=== PATIENT | female | born 1990 | race Caucasian/White ===

== ENCOUNTER 2018-08-09 20:01 | Observation (INO) | payer BC, MEDICAID ==
[2018-08-09] MEDS ORDERED: Sodium Chloride 0.9% 1,000 ML IV ONE (20:06)
[2018-08-09 20:49] LABS: ACETAMINOPHEN <2.0 ug/mL; CHLORIDE,CL 101 mmol/L (98-107); SODIUM,NA 135 mmol/L (136-145)
--- NOTE | 2018-08-09 21:13 | CR ---
INDICATION: pain, sob TECHNIQUE: Chest 1 view. COMPARISON: None. FINDINGS: Cardiovascular and mediastinum: Heart size and vasculature are normal in caliber and appearance. Mediastinum is within normal limits. Lungs and pleural space: Lungs are clear. No sign of infiltrate or mass. No sign of pleural effusion. No pneumothorax. Bones and soft tissues: No significant findings. IMPRESSION: Unremarkable chest. Dictated by: Chin Carreon MD @ 08/09/2018 21:11:40 (Electronically Signed)
--- NOTE | 2018-08-09 21:15 | CT ---
INDICATION: Change in mental status TECHNIQUE: CT head without contrast. COMPARISON: None FINDINGS: CSF spaces: Within normal limits for age. Brain parenchyma: The courtney-white differentiation is normal. No sign of mass, hemorrhage, or midline shift. Skull base and calvarium: The visualized paranasal sinuses and mastoid air cells demonstrate no acute or significant findings. The visualized orbits are grossly unremarkable. No skull fractures. IMPRESSION: Unremarkable noncontrast head CT. Dictated by Chin Carreon MD @ 08/09/2018 9:13:38 PM Please note that all CT scans at this facility use dose modulation, iterative reconstruction, and/or weight-based dosing when appropriate to reduce radiation dose to as low as reasonably achievable. Dictated by: Chin Carreon MD @ 08/09/2018 21:13:42 (Electronically Signed)
--- NOTE | 2018-08-09 21:41 | EDM.PDOC ---
ED HPI GENERAL MEDICAL PROBLEM - General Chief Complaint: Neurological Problem Stated Complaint: FEVER, NOT FEELING WELL Time Seen by Provider: 08/09/18 20:02 Source of Information: Reports: Patient, EMS, Family History Limitations: Reports: No Limitations, Altered Mental Status - History of Present Illness INITIAL COMMENTS - FREE TEXT/NARRATIVE: HISTORY AND PHYSICAL: History of present illness: History of present illness is limited due to patient's altered mental status. Patient is a 27-year-old female presents to the ED today via EMS for concern of altered mental status. According to mother, they were in the kitchen making dinner when patient began to feed states she didn't feel well. Mother states she went and sat on the couch and then started trembling so mother called 911. Per EMS, patient had begun to become more alert after they have given 2 of Narcan. Upon arrival to the ED, patient is arousable to questions. Patient states she "doesn't feel well" but does not express any particular symptom. Patient states the only medication she has taken today is a total of 4 ibuprofen. Patient has a history of depression but denies any other health history. Patient denies fever, chills, chest pain, shortness of breath, or cough. Denies headache, neck stiff ness, change in vision, syncope, or near syncope. Denies nausea, vomiting, abdominal pain, diarrhea, constipation, or dysuria. Has not noted any blood in urine or stool. Patient has been eating and drinking appropriately. Review of systems: As per history of present illness and below otherwise all systems reviewed and negative. Past medical history: As per history of present illness and as reviewed below otherwise noncontributory. Surgical history: As per history of present illness and as reviewed below otherwise noncontributory. Social history: See social history for further information Family history: As per history of present illness and as reviewed below otherwise noncontributory. Physical exam: General: Patient is confused but alert to person and place. Patient laying comfortably on exam table. HEENT: Atraumatic, normocephalic, pupils equal and reactive bilaterally, negative for conjunctival pallor or scleral icterus, bilateral scleral injection , EOMs intact, mucous membranes moist, TMs normal bilaterally, throat clear, neck supple, nontender, trachea midline. No drooling or trismus noted. No meningeal signs. No hot potato voice noted. No noted facial drooping. Lungs: Clear to auscultation, breath sounds equal bilaterally, chest nontender. Heart: S1S2, regular rate and rhythm without overt murmur Abdomen: Soft, nondistended, nontender. Negative for masses or hepatosplenomegaly. Negative for costovertebral tenderness. Pelvis: Stable nontender. Genitourinary: Deferred. Rectal: Deferred. Skin: Intact, warm, dry. No lesions or rashes noted. Extremities: Atraumatic, negative for cords or calf pain. Neurovascular unremarkable. Neuro: Neuro exam is limited due to patient's confusion. Awake, but confused. Patient is alert to person and place but not time. Cranial nerves II through XII unremarkable. Cerebellum unremarkable. Motor and sensory unremarkable throughout. Notes: Dr. Vargas directly involved in patient care. Dr. Norman consulted on patient and will admit to observation. Voices understanding and is agreeable to plan of care. Denies any further questions or concerns at this time. Diagnostics: CBC, CMP, TSH, troponin, prolactin, chest x-ray, head CT, UA, urine hCG, urine drug screen, bedside glucose, EKG, Magnesium Therapeutics: Saline Impression: Confusion Altered mental status, unspecified Plan: 1. Admit to observation to Dr. Norman Definitive disposition and diagnosis as appropriate pending reevaluation and review of above. 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: Musculoskeletal History: Reports: None Neurological History: Reports: None Psychiatric History: Reports: Anxiety, Depression Endocrine/Metabolic History: Reports: None Hematologic History: Reports: None Immunologic History: Reports: None Oncologic (Cancer) History: Reports: None Dermatologic History: Reports: None - Infectious Disease History Infectious Disease History: Reports: None - Past Surgical History Head Surgeries/Procedures: Reports: None Female Surgical History: Reports: Section Social & Family History - Family History Family Medical History: Noncontributory - Tobacco Use Smoking Status *Q: Never Smoker - Caffeine Use Caffeine Use: Reports: None - Recreational Drug Use Recreational Drug Use: No ED ROS GENERAL - Review of Systems Review Of Systems: ROS reveals no pertinent complaints other than HPI. - Physical Exam Exam: See Below (see dictation) Course - Vital Signs Last Recorded V/S: Last Vital Signs Temp 37.7 C 08/09/18 20:05 Pulse 109 H 08/09/18 21:20 Resp 16 08/09/18 21:20 BP 155/94 H 08/09/18 21:20 Pulse Ox 97 08/09/18 21:20 - Orders/Labs/Meds Orders: Active Orders 24 hr Category Date Time Status EKG Documentation Completion [RC] STAT Care 08/09/18 20:05 Active Glucose [Blood Glucose Check, Bedside] [RC] ONETIME Care 08/09/18 20:04 Active CULTURE URINE [] Stat Lab 08/09/18 21:47 Received Labs: Laboratory Tests 08/09/18 08/09/18 08/09/18 Range/Units 20:07 20:07 20:07 WBC 14.82 H (4.0-11.0) K/uL RBC 4.61 (4.30-5.90) M/uL Hgb 13.3 (12.0-16.0) g/dL Hct 38.7 (36.0-46.0) % MCV 83.9 (80.0-98.0) fL MCH 28.9 (27.0-32.0) pg MCHC 34.4 (31.0-37.0) g/dL RDW Std Deviation 39.5 (28.0-62.0) fl RDW Coeff of Iram 13 (11.0-15.0) % Plt Count 294 (150-400) K/uL MPV 10.60 (7.40-12.00) fL Neut % (Auto) 84.2 H (48.0-80.0) % Lymph % (Auto) 9.6 L (16.0-40.0) % [place] % (Auto) 6.1 (0.0-15.0) % Eos % (Auto) 0.0 (0.0-7.0) % Baso % (Auto) 0.1 (0.0-1.5) % Neut # (Auto) 12.5 H (1.4-5.7) K/uL Lymph # (Auto) 1.4 (0.6-2.4) K/uL [place] # (Auto) 0.9 H (0.0-0.8) K/uL Eos # (Auto) 0.0 (0.0-0.7) K/uL Baso # (Auto) 0.0 (0.0-0.1) K/uL Nucleated RBC % 0.0 /100WBC Nucleated RBCs # 0 K/uL Sodium 135 L (136-145) mmol/L Potassium 3.3 L (3.5-5.1) mmol/L Chloride 101 (98-107) mmol/L Carbon Dioxide 23.5 (21.0-32.0) mmol/L BUN 9 (7.0-18.0) mg/dL Creatinine 0.7 (0.6-1.0) mg/dL Est Cr Clr Drug Dosing TNP Estimated GFR (MDRD) > 60.0 ml/min Glucose 112 H (74-106) mg/dL Calcium 8.5 (8.5-10.1) mg/dL Magnesium 1.7 L (1.8-2.4) mg/dL Total Bilirubin 0.3 (0.2-1.0) mg/dL AST 11 L (15-37) IU/L ALT 13 L (14-63) IU/L Alkaline Phosphatase 104 (46-116) U/L Troponin I (0.000-0.056) ng/mL Total Protein 7.5 (6.4-8.2) g/dL Albumin 3.7 (3.4-5.0) g/dL Globulin 3.8 (2.6-4.0) g/dL Albumin/Globulin Ratio 1.0 (0.9-1.6) TSH 3rd Generation 1.24 (0.36-3.74) uIU/mL Prolactin 22.1 ng/mL Urine Color Urine Appearance Urine pH (5.0-8.0) Ur Specific [place] (1.001-1.035) Urine Protein (NEGATIVE) mg/dL Urine Glucose (UA) (NEGATIVE) mg/dL Urine Ketones (NEGATIVE) mg/dL Urine Occult Blood (NEGATIVE) Urine Nitrite (NEGATIVE) Urine Bilirubin (NEGATIVE) Urine Urobilinogen (<2.0) EU/dL Ur Leukocyte Esterase (NEGATIVE) Urine RBC (0-2/HPF) Urine WBC (0-5/HPF) Ur Epithelial Cells (NONE-FEW) Urine Bacteria (NEGATIVE) Urine HCG, Qual (NEGATIVE) Salicylates 1.3 (0-20) mg/dL Urine Opiates Screen (NEGATIVE) Ur Oxycodone Screen (NEGATIVE) Urine Methadone Screen (NEGATIVE) Acetaminophen <2.0 ug/mL Ur Barbiturates Screen (NEGATIVE) Ur Phencyclidine Scrn (NEGATIVE) Ur Amphetamine Screen (NEGATIVE) U Methamphetamines Scrn (NEGATIVE) U Benzodiazepines Scrn (NEGATIVE) U Cocaine Metab Screen (NEGATIVE) U Marijuana (THC) Screen (NEGATIVE) Ethyl Alcohol < 3.0 mg/dL 08/09/18 08/09/18 08/09/18 Range/Units 20:07 21:47 21:47 WBC (4.0-11.0) K/uL RBC (4.30-5.90) M/uL Hgb (12.0-16.0) g/dL Hct (36.0-46.0) % MCV (80.0-98.0) fL MCH (27.0-32.0) pg MCHC (31.0-37.0) g/dL RDW Std Deviation (28.0-62.0) fl RDW Coeff of Iram (11.0-15.0) % Plt Count (150-400) K/uL MPV (7.40-12.00) fL Neut % (Auto) (48.0-80.0) % Lymph % (Auto) (16.0-40.0) % [place] % (Auto) (0.0-15.0) % Eos % (Auto) (0.0-7.0) % Baso % (Auto) (0.0-1.5) % Neut # (Auto) (1.4-5.7) K/uL Lymph # (Auto) (0.6-2.4) K/uL [place] # (Auto) (0.0-0.8) K/uL Eos # (Auto) (0.0-0.7) K/uL Baso # (Auto) (0.0-0.1) K/uL Nucleated RBC % /100WBC Nucleated RBCs # K/uL Sodium (136-145) mmol/L Potassium (3.5-5.1) mmol/L Chloride (98-107) mmol/L Carbon Dioxide (21.0-32.0) mmol/L BUN (7.0-18.0) mg/dL Creatinine (0.6-1.0) mg/dL Est Cr Clr Drug Dosing Estimated GFR (MDRD) ml/min Glucose (74-106) mg/dL Calcium (8.5-10.1) mg/dL Magnesium (1.8-2.4) mg/dL Total Bilirubin (0.2-1.0) mg/dL AST (15-37) IU/L ALT (14-63) IU/L Alkaline Phosphatase (46-116) U/L Troponin I < 0.050 (0.000-0.056) ng/mL Total Protein (6.4-8.2) g/dL Albumin (3.4-5.0) g/dL Globulin (2.6-4.0) g/dL Albumin/Globulin Ratio (0.9-1.6) TSH 3rd Generation (0.36-3.74) uIU/mL Prolactin ng/mL Urine Color YELLOW Urine Appearance CLEAR Urine pH 6.5 (5.0-8.0) Ur Specific [place] <= 1.005 (1.001-1.035) Urine Protein NEGATIVE (NEGATIVE) mg/dL Urine Glucose (UA) NEGATIVE (NEGATIVE) mg/dL Urine Ketones NEGATIVE (NEGATIVE) mg/dL Urine Occult Blood TRACE-INTACT H (NEGATIVE) Urine Nitrite NEGATIVE (NEGATIVE) Urine Bilirubin NEGATIVE (NEGATIVE) Urine Urobilinogen 0.2 (<2.0) EU/dL Ur Leukocyte Esterase TRACE H (NEGATIVE) Urine RBC 2-4 (0-2/HPF) Urine WBC 1-3 (0-5/HPF) Ur Epithelial Cells MODERATE (NONE-FEW) Urine Bacteria RARE (NEGATIVE) Urine HCG, Qual NEGATIVE (NEGATIVE) Salicylates (0-20) mg/dL Urine Opiates Screen (NEGATIVE) Ur Oxycodone Screen (NEGATIVE) Urine Methadone Screen (NEGATIVE) Acetaminophen ug/mL Ur Barbiturates Screen (NEGATIVE) Ur Phencyclidine Scrn (NEGATIVE) Ur Amphetamine Screen (NEGATIVE) U Methamphetamines Scrn (NEGATIVE) U Benzodiazepines Scrn (NEGATIVE) U Cocaine Metab Screen (NEGATIVE) U Marijuana (THC) Screen (NEGATIVE) Ethyl Alcohol mg/dL 08/09/18 Range/Units 21:47 WBC (4.0-11.0) K/uL RBC (4.30-5.90) M/uL Hgb (12.0-16.0) g/dL Hct (36.0-46.0) % MCV (80.0-98.0) fL MCH (27.0-32.0) pg MCHC (31.0-37.0) g/dL RDW Std Deviation (28.0-62.0) fl RDW Coeff of Iram (11.0-15.0) % Plt Count (150-400) K/uL MPV (7.40-12.00) fL Neut % (Auto) (48.0-80.0) % Lymph % (Auto) (16.0-40.0) % [place] % (Auto) (0.0-15.0) % Eos % (Auto) (0.0-7.0) % Baso % (Auto) (0.0-1.5) % Neut # (Auto) (1.4-5.7) K/uL Lymph # (Auto) (0.6-2.4) K/uL [place] # (Auto) (0.0-0.8) K/uL Eos # (Auto) (0.0-0.7) K/uL Baso # (Auto) (0.0-0.1) K/uL Nucleated RBC % /100WBC Nucleated RBCs # K/uL Sodium (136-145) mmol/L Potassium (3.5-5.1) mmol/L Chloride (98-107) mmol/L Carbon Dioxide (21.0-32.0) mmol/L BUN (7.0-18.0) mg/dL Creatinine (0.6-1.0) mg/dL Est Cr Clr Drug Dosing Estimated GFR (MDRD) ml/min Glucose (74-106) mg/dL Calcium (8.5-10.1) mg/dL Magnesium (1.8-2.4) mg/dL Total Bilirubin (0.2-1.0) mg/dL AST (15-37) IU/L ALT (14-63) IU/L Alkaline Phosphatase (46-116) U/L Troponin I (0.000-0.056) ng/mL Total Protein (6.4-8.2) g/dL Albumin (3.4-5.0) g/dL Globulin (2.6-4.0) g/dL Albumin/Globulin Ratio (0.9-1.6) TSH 3rd Generation (0.36-3.74) uIU/mL Prolactin ng/mL Urine Color Urine Appearance Urine pH (5.0-8.0) Ur Specific [place] (1.001-1.035) Urine Protein (NEGATIVE) mg/dL Urine Glucose (UA) (NEGATIVE) mg/dL Urine Ketones (NEGATIVE) mg/dL Urine Occult Blood (NEGATIVE) Urine Nitrite (NEGATIVE) Urine Bilirubin (NEGATIVE) Urine Urobilinogen (<2.0) EU/dL Ur Leukocyte Esterase (NEGATIVE) Urine RBC (0-2/HPF) Urine WBC (0-5/HPF) Ur Epithelial Cells (NONE-FEW) Urine Bacteria (NEGATIVE) Urine HCG, Qual (NEGATIVE) Salicylates (0-20) mg/dL Urine Opiates Screen NEGATIVE (NEGATIVE) Ur Oxycodone Screen NEGATIVE (NEGATIVE) Urine Methadone Screen NEGATIVE (NEGATIVE) Acetaminophen ug/mL Ur Barbiturates Screen NEGATIVE (NEGATIVE) Ur Phencyclidine Scrn NEGATIVE (NEGATIVE) Ur Amphetamine Screen NEGATIVE (NEGATIVE) U Methamphetamines Scrn NEGATIVE (NEGATIVE) U Benzodiazepines Scrn NEGATIVE (NEGATIVE) U Cocaine Metab Screen NEGATIVE (NEGATIVE) U Marijuana (THC) Screen NEGATIVE (NEGATIVE) Ethyl Alcohol mg/dL Meds: Medications Discontinued Medications Generic Name Dose Route Start Last Admin Trade Name Freq PRN Reason Stop Dose Admin Sodium Chloride 1,000 mls @ 999 mls/hr 08/09/18 20:06 08/09/18 20:19 Normal Saline IV 08/09/18 21:06 999 mls/hr STAT ONE Administration Departure - Departure Time of Disposition: 22:19 Disposition: Refer to Observation Clinical Impression: Confusion Altered mental status Qualifiers: Altered mental status type: unspecified Qualified Code(s): R41.82 - Altered mental status, unspecified - Discharge Information - My Orders Last 24 Hours: My Active Orders 08/09/18 20:04 Glucose [Blood Glucose Check, Bedside] [RC] ONETIME 08/09/18 20:05 EKG Documentation Completion [RC] STAT 08/09/18 21:47 CULTURE URINE [RM] Stat - Assessment/Plan Last 24 Hours: My Active Orders 08/09/18 20:04 Glucose [Blood Glucose Check, Bedside] [RC] ONETIME 08/09/18 20:05 EKG Documentation Completion [RC] STAT 08/09/18 21:47 CULTURE URINE [RM] Stat
--- NOTE | 2018-08-09 23:47 | PCM.HP ---
H&P History of Present Illness - General Date of Service: 08/10/18 Admit Problem/Dx: Admission Diagnosis/Problem Admission Diagnosis/Problem Altered mental status - History of Present Illness Initial Comments - Free Text/Narative: 27 yo female who has not been feeling well for past four days. She reports fevers, sweats, myalgias, and sore throat. Patient's 4 year old son had similar symptoms last week. Tonight she wasn't feeling well. Her mother told her to lay down and then she started to shake and passed out. EMS was called and gave narcan. Initially in the ED she kept her eyes closed and would not cooperated with exam before she started to respond to questions appropriately. headache Pain Score (Numeric/FACES): 10 - Related Data Allergies/Adverse Reactions: Allergies Allergy/AdvReac Type Severity Reaction Status Date / Time latex Allergy Hives Verified 08/09/18 20:05 Home Medications: Home Meds Escitalopram [Lexapro] 20 mg PO DAILY 08/09/18 [History] Nitrofurantoin Monohyd/M-Cryst [Macrobid 100 mg Capsule] 100 mg PO BID 5 Days # 10 capsule 08/11/18 [Rx] SUMAtriptan [Imitrex] 50 mg PO Q2H PRN #15 tablet 08/11/18 [Rx] Past Medical History - Past Health History Medical/Surgical History: Denies Medical/Surgical History HEENT History: Reports: None Cardiovascular History: Reports: None Respiratory History: Reports: None Gastrointestinal History: Reports: None Genitourinary History: Reports: None 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: Musculoskeletal History: Reports: None Neurological History: Reports: None Psychiatric History: Reports: Anxiety, Depression Endocrine/Metabolic History: Reports: None Hematologic History: Reports: None Immunologic History: Reports: None Oncologic (Cancer) History: Reports: None Dermatologic History: Reports: None - Infectious Disease History Infectious Disease History: Reports: None - Past Surgical History Head Surgeries/Procedures: Reports: None Female Surgical History: Reports: Section Social & Family History - Family History Family Medical History: Noncontributory - Tobacco Use Smoking Status *Q: Never Smoker - Caffeine Use Caffeine Use: Reports: None - Recreational Drug Use Recreational Drug Use: No H&P Review of Systems - Review of Systems: Review Of Systems: ROS reveals no pertinent complaints other than HPI. Exam - Exam Exam: See Below - Vital Signs Vital Signs: Last Vital Signs Temp 37.5 C 08/09/18 23:13 Pulse 101 H 08/09/18 23:13 Resp 17 08/09/18 23:13 BP 130/77 08/09/18 23:13 Pulse Ox 96 08/09/18 23:13 - Exam General: Alert, Oriented HEENT: Mucosa Moist & [place], Posterior Pharynx Clear Neck: Supple Lungs: Clear to Auscultation, Normal Respiratory Effort Cardiovascular: Regular Rate, Regular Rhythm GI/Abdominal Exam: Normal Bowel Sounds, Soft, Non-Tender, No Organomegaly Extremities: Normal Range of Motion, Non-Tender Skin: Warm, Dry, Intact Neurological: Cranial Nerves Intact. No: Focal Deficit - Patient Data Lab Results Last 24 hrs: Laboratory Results - last 24 hr 08/09/18 08/09/18 08/09/18 Range/Units 20:07 20:07 20:07 WBC 14.82 H (4.0-11.0) K/uL RBC 4.61 (4.30-5.90) M/uL Hgb 13.3 (12.0-16.0) g/dL Hct 38.7 (36.0-46.0) % MCV 83.9 (80.0-98.0) fL MCH 28.9 (27.0-32.0) pg MCHC 34.4 (31.0-37.0) g/dL RDW Std Deviation 39.5 (28.0-62.0) fl RDW Coeff of Iram 13 (11.0-15.0) % Plt Count 294 (150-400) K/uL MPV 10.60 (7.40-12.00) fL Neut % (Auto) 84.2 H (48.0-80.0) % Lymph % (Auto) 9.6 L (16.0-40.0) % [place] % (Auto) 6.1 (0.0-15.0) % Eos % (Auto) 0.0 (0.0-7.0) % Baso % (Auto) 0.1 (0.0-1.5) % Neut # (Auto) 12.5 H (1.4-5.7) K/uL Lymph # (Auto) 1.4 (0.6-2.4) K/uL [place] # (Auto) 0.9 H (0.0-0.8) K/uL Eos # (Auto) 0.0 (0.0-0.7) K/uL Baso # (Auto) 0.0 (0.0-0.1) K/uL Nucleated RBC % 0.0 /100WBC Nucleated RBCs # 0 K/uL Sodium 135 L (136-145) mmol/L Potassium 3.3 L (3.5-5.1) mmol/L Chloride 101 (98-107) mmol/L Carbon Dioxide 23.5 (21.0-32.0) mmol/L BUN 9 (7.0-18.0) mg/dL Creatinine 0.7 (0.6-1.0) mg/dL Est Cr Clr Drug Dosing TNP Estimated GFR (MDRD) > 60.0 ml/min Glucose 112 H (74-106) mg/dL Calcium 8.5 (8.5-10.1) mg/dL Magnesium 1.7 L (1.8-2.4) mg/dL Total Bilirubin 0.3 (0.2-1.0) mg/dL AST 11 L (15-37) IU/L ALT 13 L (14-63) IU/L Alkaline Phosphatase 104 (46-116) U/L Troponin I (0.000-0.056) ng/mL Total Protein 7.5 (6.4-8.2) g/dL Albumin 3.7 (3.4-5.0) g/dL Globulin 3.8 (2.6-4.0) g/dL Albumin/Globulin Ratio 1.0 (0.9-1.6) TSH 3rd Generation 1.24 (0.36-3.74) uIU/mL Prolactin 22.1 ng/mL Urine Color Urine Appearance Urine pH (5.0-8.0) Ur Specific [place] (1.001-1.035) Urine Protein (NEGATIVE) mg/dL Urine Glucose (UA) (NEGATIVE) mg/dL Urine Ketones (NEGATIVE) mg/dL Urine Occult Blood (NEGATIVE) Urine Nitrite (NEGATIVE) Urine Bilirubin (NEGATIVE) Urine Urobilinogen (<2.0) EU/dL Ur Leukocyte Esterase (NEGATIVE) Urine RBC (0-2/HPF) Urine WBC (0-5/HPF) Ur Epithelial Cells (NONE-FEW) Urine Bacteria (NEGATIVE) Urine HCG, Qual (NEGATIVE) Salicylates 1.3 (0-20) mg/dL Urine Opiates Screen (NEGATIVE) Ur Oxycodone Screen (NEGATIVE) Urine Methadone Screen (NEGATIVE) Acetaminophen <2.0 ug/mL Ur Barbiturates Screen (NEGATIVE) Ur Phencyclidine Scrn (NEGATIVE) Ur Amphetamine Screen (NEGATIVE) U Methamphetamines Scrn (NEGATIVE) U Benzodiazepines Scrn (NEGATIVE) U Cocaine Metab Screen (NEGATIVE) U Marijuana (THC) Screen (NEGATIVE) Ethyl Alcohol < 3.0 mg/dL 08/09/18 08/09/18 08/09/18 Range/Units 20:07 21:47 21:47 WBC (4.0-11.0) K/uL RBC (4.30-5.90) M/uL Hgb (12.0-16.0) g/dL Hct (36.0-46.0) % MCV (80.0-98.0) fL MCH (27.0-32.0) pg MCHC (31.0-37.0) g/dL RDW Std Deviation (28.0-62.0) fl RDW Coeff of Iram (11.0-15.0) % Plt Count (150-400) K/uL MPV (7.40-12.00) fL Neut % (Auto) (48.0-80.0) % Lymph % (Auto) (16.0-40.0) % [place] % (Auto) (0.0-15.0) % Eos % (Auto) (0.0-7.0) % Baso % (Auto) (0.0-1.5) % Neut # (Auto) (1.4-5.7) K/uL Lymph # (Auto) (0.6-2.4) K/uL [place] # (Auto) (0.0-0.8) K/uL Eos # (Auto) (0.0-0.7) K/uL Baso # (Auto) (0.0-0.1) K/uL Nucleated RBC % /100WBC Nucleated RBCs # K/uL Sodium (136-145) mmol/L Potassium (3.5-5.1) mmol/L Chloride (98-107) mmol/L Carbon Dioxide (21.0-32.0) mmol/L BUN (7.0-18.0) mg/dL Creatinine (0.6-1.0) mg/dL Est Cr Clr Drug Dosing Estimated GFR (MDRD) ml/min Glucose (74-106) mg/dL Calcium (8.5-10.1) mg/dL Magnesium (1.8-2.4) mg/dL Total Bilirubin (0.2-1.0) mg/dL AST (15-37) IU/L ALT (14-63) IU/L Alkaline Phosphatase (46-116) U/L Troponin I < 0.050 (0.000-0.056) ng/mL Total Protein (6.4-8.2) g/dL Albumin (3.4-5.0) g/dL Globulin (2.6-4.0) g/dL Albumin/Globulin Ratio (0.9-1.6) TSH 3rd Generation (0.36-3.74) uIU/mL Prolactin ng/mL Urine Color YELLOW Urine Appearance CLEAR Urine pH 6.5 (5.0-8.0) Ur Specific [place] <= 1.005 (1.001-1.035) Urine Protein NEGATIVE (NEGATIVE) mg/dL Urine Glucose (UA) NEGATIVE (NEGATIVE) mg/dL Urine Ketones NEGATIVE (NEGATIVE) mg/dL Urine Occult Blood TRACE-INTACT H (NEGATIVE) Urine Nitrite NEGATIVE (NEGATIVE) Urine Bilirubin NEGATIVE (NEGATIVE) Urine Urobilinogen 0.2 (<2.0) EU/dL Ur Leukocyte Esterase TRACE H (NEGATIVE) Urine RBC 2-4 (0-2/HPF) Urine WBC 1-3 (0-5/HPF) Ur Epithelial Cells MODERATE (NONE-FEW) Urine Bacteria RARE (NEGATIVE) Urine HCG, Qual NEGATIVE (NEGATIVE) Salicylates (0-20) mg/dL Urine Opiates Screen (NEGATIVE) Ur Oxycodone Screen (NEGATIVE) Urine Methadone Screen (NEGATIVE) Acetaminophen ug/mL Ur Barbiturates Screen (NEGATIVE) Ur Phencyclidine Scrn (NEGATIVE) Ur Amphetamine Screen (NEGATIVE) U Methamphetamines Scrn (NEGATIVE) U Benzodiazepines Scrn (NEGATIVE) U Cocaine Metab Screen (NEGATIVE) U Marijuana (THC) Screen (NEGATIVE) Ethyl Alcohol mg/dL 08/09/18 Range/Units 21:47 WBC (4.0-11.0) K/uL RBC (4.30-5.90) M/uL Hgb (12.0-16.0) g/dL Hct (36.0-46.0) % MCV (80.0-98.0) fL MCH (27.0-32.0) pg MCHC (31.0-37.0) g/dL RDW Std Deviation (28.0-62.0) fl RDW Coeff of Iram (11.0-15.0) % Plt Count (150-400) K/uL MPV (7.40-12.00) fL Neut % (Auto) (48.0-80.0) % Lymph % (Auto) (16.0-40.0) % [place] % (Auto) (0.0-15.0) % Eos % (Auto) (0.0-7.0) % Baso % (Auto) (0.0-1.5) % Neut # (Auto) (1.4-5.7) K/uL Lymph # (Auto) (0.6-2.4) K/uL [place] # (Auto) (0.0-0.8) K/uL Eos # (Auto) (0.0-0.7) K/uL Baso # (Auto) (0.0-0.1) K/uL Nucleated RBC % /100WBC Nucleated RBCs # K/uL Sodium (136-145) mmol/L Potassium (3.5-5.1) mmol/L Chloride (98-107) mmol/L Carbon Dioxide (21.0-32.0) mmol/L BUN (7.0-18.0) mg/dL Creatinine (0.6-1.0) mg/dL Est Cr Clr Drug Dosing Estimated GFR (MDRD) ml/min Glucose (74-106) mg/dL Calcium (8.5-10.1) mg/dL Magnesium (1.8-2.4) mg/dL Total Bilirubin (0.2-1.0) mg/dL AST (15-37) IU/L ALT (14-63) IU/L Alkaline Phosphatase (46-116) U/L Troponin I (0.000-0.056) ng/mL Total Protein (6.4-8.2) g/dL Albumin (3.4-5.0) g/dL Globulin (2.6-4.0) g/dL Albumin/Globulin Ratio (0.9-1.6) TSH 3rd Generation (0.36-3.74) uIU/mL Prolactin ng/mL Urine Color Urine Appearance Urine pH (5.0-8.0) Ur Specific [place] (1.001-1.035) Urine Protein (NEGATIVE) mg/dL Urine Glucose (UA) (NEGATIVE) mg/dL Urine Ketones (NEGATIVE) mg/dL Urine Occult Blood (NEGATIVE) Urine Nitrite (NEGATIVE) Urine Bilirubin (NEGATIVE) Urine Urobilinogen (<2.0) EU/dL Ur Leukocyte Esterase (NEGATIVE) Urine RBC (0-2/HPF) Urine WBC (0-5/HPF) Ur Epithelial Cells (NONE-FEW) Urine Bacteria (NEGATIVE) Urine HCG, Qual (NEGATIVE) Salicylates (0-20) mg/dL Urine Opiates Screen NEGATIVE (NEGATIVE) Ur Oxycodone Screen NEGATIVE (NEGATIVE) Urine Methadone Screen NEGATIVE (NEGATIVE) Acetaminophen ug/mL Ur Barbiturates Screen NEGATIVE (NEGATIVE) Ur Phencyclidine Scrn NEGATIVE (NEGATIVE) Ur Amphetamine Screen NEGATIVE (NEGATIVE) U Methamphetamines Scrn NEGATIVE (NEGATIVE) U Benzodiazepines Scrn NEGATIVE (NEGATIVE) U Cocaine Metab Screen NEGATIVE (NEGATIVE) U Marijuana (THC) Screen NEGATIVE (NEGATIVE) Ethyl Alcohol mg/dL Result Diagrams: 08/11/18 05:35 08/11/18 05:35 Problem List Initiated/Reviewed/Updated: Yes Orders Last 24hrs: Active Orders 24 hr Category Date Time Status Admission Status [Patient Status] [ADT] Stat ADT 08/09/18 22:20 Active EKG Documentation Completion [RC] STAT Care 08/09/18 20:05 Active Glucose [Blood Glucose Check, Bedside] [RC] ONETIME Care 08/09/18 20:04 Active CULTURE URINE [RM] Stat Lab 08/09/18 21:47 Received Assessment/Plan Comment:: 27 yo female admitted after episode of loss of consciousness that is likely due to acute viral illness.
[2018-08-10] MEDS ORDERED: Ondansetron 4 MG Tab.DIS PO PRN
[2018-08-10] MEDS: Sodium Chloride 0.9% 1,000 ML IV SCH ×3 (00:45→16:39)
[2018-08-10 06:29] LABS: CHLORIDE,CL 104 mmol/L (98-107); SODIUM,NA 136 mmol/L (136-145)
[2018-08-10] MEDS: Acetaminophen 325 MG Tab PO PRN ×2 (07:39→12:25)
[2018-08-10] MEDS ORDERED: Magnesium Sulfate/Water 2 GM in Premix Bag 1 BAG IV ONE (07:45)
[2018-08-10] MEDS ORDERED: Acetaminophen 500 MG Tab PO PRN (08:49)
[2018-08-10] MEDS ORDERED: SUMAtriptan 50 MG Tab PO ONE (09:41)
--- NOTE | 2018-08-10 15:24 | PCM.PN ---
- General Info Date of Service: 08/10/18 Subjective Update: No acute events overnight. Afebrile. No nausea or vomiting. She is endorsing diffuse headache. No chest pain, dyspnea, abdominal pain. - Patient Data Vitals - Most Recent: Last Vital Signs Temp 36.3 C 08/10/18 11:00 Pulse 74 08/10/18 11:00 Resp 18 08/10/18 11:00 BP 98/57 L 08/10/18 11:00 Pulse Ox 97 08/10/18 11:00 Weight - Most Recent: 83.915 kg I&O - Last 24 Hours: Intake & Output 08/10/18 08/10/18 08/10/18 06:59 14:59 22:59 Intake Total 491 50 Output Total 0 Balance 491 50 Lab Results Last 24 Hours: Laboratory Results - last 24 hr 08/09/18 08/09/18 08/09/18 Range/Units 20:07 20:07 20:07 WBC 14.82 H (4.0-11.0) K/uL RBC 4.61 (4.30-5.90) M/uL Hgb 13.3 (12.0-16.0) g/dL Hct 38.7 (36.0-46.0) % MCV 83.9 (80.0-98.0) fL MCH 28.9 (27.0-32.0) pg MCHC 34.4 (31.0-37.0) g/dL RDW Std Deviation 39.5 (28.0-62.0) fl RDW Coeff of Iram 13 (11.0-15.0) % Plt Count 294 (150-400) K/uL MPV 10.60 (7.40-12.00) fL Neut % (Auto) 84.2 H (48.0-80.0) % Lymph % (Auto) 9.6 L (16.0-40.0) % [place] % (Auto) 6.1 (0.0-15.0) % Eos % (Auto) 0.0 (0.0-7.0) % Baso % (Auto) 0.1 (0.0-1.5) % Neut # (Auto) 12.5 H (1.4-5.7) K/uL Lymph # (Auto) 1.4 (0.6-2.4) K/uL [place] # (Auto) 0.9 H (0.0-0.8) K/uL Eos # (Auto) 0.0 (0.0-0.7) K/uL Baso # (Auto) 0.0 (0.0-0.1) K/uL Nucleated RBC % 0.0 /100WBC Nucleated RBCs # 0 K/uL Sodium 135 L (136-145) mmol/L Potassium 3.3 L (3.5-5.1) mmol/L Chloride 101 (98-107) mmol/L Carbon Dioxide 23.5 (21.0-32.0) mmol/L BUN 9 (7.0-18.0) mg/dL Creatinine 0.7 (0.6-1.0) mg/dL Est Cr Clr Drug Dosing TNP Estimated GFR (MDRD) > 60.0 ml/min Glucose 112 H (74-106) mg/dL Calcium 8.5 (8.5-10.1) mg/dL Magnesium 1.7 L (1.8-2.4) mg/dL Total Bilirubin 0.3 (0.2-1.0) mg/dL AST 11 L (15-37) IU/L ALT 13 L (14-63) IU/L Alkaline Phosphatase 104 (46-116) U/L Troponin I (0.000-0.056) ng/mL Total Protein 7.5 (6.4-8.2) g/dL Albumin 3.7 (3.4-5.0) g/dL Globulin 3.8 (2.6-4.0) g/dL Albumin/Globulin Ratio 1.0 (0.9-1.6) TSH 3rd Generation 1.24 (0.36-3.74) uIU/mL Prolactin 22.1 ng/mL Urine Color Urine Appearance Urine pH (5.0-8.0) Ur Specific [place] (1.001-1.035) Urine Protein (NEGATIVE) mg/dL Urine Glucose (UA) (NEGATIVE) mg/dL Urine Ketones (NEGATIVE) mg/dL Urine Occult Blood (NEGATIVE) Urine Nitrite (NEGATIVE) Urine Bilirubin (NEGATIVE) Urine Urobilinogen (<2.0) EU/dL Ur Leukocyte Esterase (NEGATIVE) Urine RBC (0-2/HPF) Urine WBC (0-5/HPF) Ur Epithelial Cells (NONE-FEW) Urine Bacteria (NEGATIVE) Urine HCG, Qual (NEGATIVE) Salicylates 1.3 (0-20) mg/dL Urine Opiates Screen (NEGATIVE) Ur Oxycodone Screen (NEGATIVE) Urine Methadone Screen (NEGATIVE) Acetaminophen <2.0 ug/mL Ur Barbiturates Screen (NEGATIVE) Ur Phencyclidine Scrn (NEGATIVE) Ur Amphetamine Screen (NEGATIVE) U Methamphetamines Scrn (NEGATIVE) U Benzodiazepines Scrn (NEGATIVE) U Cocaine Metab Screen (NEGATIVE) U Marijuana (THC) Screen (NEGATIVE) Ethyl Alcohol < 3.0 mg/dL Monoscreen (NEG) HIV 1&2 Ag/Ab, 4th Gen (<1.0) INDEX 08/09/18 08/09/18 08/09/18 Range/Units 20:07 20:07 20:07 WBC (4.0-11.0) K/uL RBC (4.30-5.90) M/uL Hgb (12.0-16.0) g/dL Hct (36.0-46.0) % MCV (80.0-98.0) fL MCH (27.0-32.0) pg MCHC (31.0-37.0) g/dL RDW Std Deviation (28.0-62.0) fl RDW Coeff of Iram (11.0-15.0) % Plt Count (150-400) K/uL MPV (7.40-12.00) fL Neut % (Auto) (48.0-80.0) % Lymph % (Auto) (16.0-40.0) % [place] % (Auto) (0.0-15.0) % Eos % (Auto) (0.0-7.0) % Baso % (Auto) (0.0-1.5) % Neut # (Auto) (1.4-5.7) K/uL Lymph # (Auto) (0.6-2.4) K/uL [place] # (Auto) (0.0-0.8) K/uL Eos # (Auto) (0.0-0.7) K/uL Baso # (Auto) (0.0-0.1) K/uL Nucleated RBC % /100WBC Nucleated RBCs # K/uL Sodium (136-145) mmol/L Potassium (3.5-5.1) mmol/L Chloride (98-107) mmol/L Carbon Dioxide (21.0-32.0) mmol/L BUN (7.0-18.0) mg/dL Creatinine (0.6-1.0) mg/dL Est Cr Clr Drug Dosing Estimated GFR (MDRD) ml/min Glucose (74-106) mg/dL Calcium (8.5-10.1) mg/dL Magnesium (1.8-2.4) mg/dL Total Bilirubin (0.2-1.0) mg/dL AST (15-37) IU/L ALT (14-63) IU/L Alkaline Phosphatase (46-116) U/L Troponin I < 0.050 (0.000-0.056) ng/mL Total Protein (6.4-8.2) g/dL Albumin (3.4-5.0) g/dL Globulin (2.6-4.0) g/dL Albumin/Globulin Ratio (0.9-1.6) TSH 3rd Generation (0.36-3.74) uIU/mL Prolactin ng/mL Urine Color Urine Appearance Urine pH (5.0-8.0) Ur Specific [place] (1.001-1.035) Urine Protein (NEGATIVE) mg/dL Urine Glucose (UA) (NEGATIVE) mg/dL Urine Ketones (NEGATIVE) mg/dL Urine Occult Blood (NEGATIVE) Urine Nitrite (NEGATIVE) Urine Bilirubin (NEGATIVE) Urine Urobilinogen (<2.0) EU/dL Ur Leukocyte Esterase (NEGATIVE) Urine RBC (0-2/HPF) Urine WBC (0-5/HPF) Ur Epithelial Cells (NONE-FEW) Urine Bacteria (NEGATIVE) Urine HCG, Qual (NEGATIVE) Salicylates (0-20) mg/dL Urine Opiates Screen (NEGATIVE) Ur Oxycodone Screen (NEGATIVE) Urine Methadone Screen (NEGATIVE) Acetaminophen ug/mL Ur Barbiturates Screen (NEGATIVE) Ur Phencyclidine Scrn (NEGATIVE) Ur Amphetamine Screen (NEGATIVE) U Methamphetamines Scrn (NEGATIVE) U Benzodiazepines Scrn (NEGATIVE) U Cocaine Metab Screen (NEGATIVE) U Marijuana (THC) Screen (NEGATIVE) Ethyl Alcohol mg/dL Monoscreen NEGATIVE (NEG) HIV 1&2 Ag/Ab, 4th Gen < 0.1 (<1.0) INDEX 06/06/19 06/06/19 06/06/19 Range/Units 21:47 21:47 21:47 WBC (4.0-11.0) K/uL RBC (4.30-5.90) M/uL Hgb (12.0-16.0) g/dL Hct (36.0-46.0) % MCV (80.0-98.0) fL MCH (27.0-32.0) pg MCHC (31.0-37.0) g/dL RDW Std Deviation (28.0-62.0) fl RDW Coeff of Iram (11.0-15.0) % Plt Count (150-400) K/uL MPV (7.40-12.00) fL Neut % (Auto) (48.0-80.0) % Lymph % (Auto) (16.0-40.0) % [place] % (Auto) (0.0-15.0) % Eos % (Auto) (0.0-7.0) % Baso % (Auto) (0.0-1.5) % Neut # (Auto) (1.4-5.7) K/uL Lymph # (Auto) (0.6-2.4) K/uL [place] # (Auto) (0.0-0.8) K/uL Eos # (Auto) (0.0-0.7) K/uL Baso # (Auto) (0.0-0.1) K/uL Nucleated RBC % /100WBC Nucleated RBCs # K/uL Sodium (136-145) mmol/L Potassium (3.5-5.1) mmol/L Chloride (98-107) mmol/L Carbon Dioxide (21.0-32.0) mmol/L BUN (7.0-18.0) mg/dL Creatinine (0.6-1.0) mg/dL Est Cr Clr Drug Dosing Estimated GFR (MDRD) ml/min Glucose (74-106) mg/dL Calcium (8.5-10.1) mg/dL Magnesium (1.8-2.4) mg/dL Total Bilirubin (0.2-1.0) mg/dL AST (15-37) IU/L ALT (14-63) IU/L Alkaline Phosphatase (46-116) U/L Troponin I (0.000-0.056) ng/mL Total Protein (6.4-8.2) g/dL Albumin (3.4-5.0) g/dL Globulin (2.6-4.0) g/dL Albumin/Globulin Ratio (0.9-1.6) TSH 3rd Generation (0.36-3.74) uIU/mL Prolactin ng/mL Urine Color YELLOW Urine Appearance CLEAR Urine pH 6.5 (5.0-8.0) Ur Specific [place] <= 1.005 (1.001-1.035) Urine Protein NEGATIVE (NEGATIVE) mg/dL Urine Glucose (UA) NEGATIVE (NEGATIVE) mg/dL Urine Ketones NEGATIVE (NEGATIVE) mg/dL Urine Occult Blood TRACE-INTACT H (NEGATIVE) Urine Nitrite NEGATIVE (NEGATIVE) Urine Bilirubin NEGATIVE (NEGATIVE) Urine Urobilinogen 0.2 (<2.0) EU/dL Ur Leukocyte Esterase TRACE H (NEGATIVE) Urine RBC 2-4 (0-2/HPF) Urine WBC 1-3 (0-5/HPF) Ur Epithelial Cells MODERATE (NONE-FEW) Urine Bacteria RARE (NEGATIVE) Urine HCG, Qual NEGATIVE (NEGATIVE) Salicylates (0-20) mg/dL Urine Opiates Screen NEGATIVE (NEGATIVE) Ur Oxycodone Screen NEGATIVE (NEGATIVE) Urine Methadone Screen NEGATIVE (NEGATIVE) Acetaminophen ug/mL Ur Barbiturates Screen NEGATIVE (NEGATIVE) Ur Phencyclidine Scrn NEGATIVE (NEGATIVE) Ur Amphetamine Screen NEGATIVE (NEGATIVE) U Methamphetamines Scrn NEGATIVE (NEGATIVE) U Benzodiazepines Scrn NEGATIVE (NEGATIVE) U Cocaine Metab Screen NEGATIVE (NEGATIVE) U Marijuana (THC) Screen NEGATIVE (NEGATIVE) Ethyl Alcohol mg/dL Monoscreen (NEG) HIV 1&2 Ag/Ab, 4th Gen (<1.0) INDEX 08/10/18 08/10/18 Range/Units 04:55 04:55 WBC 14.33 H (4.0-11.0) K/uL RBC 4.51 (4.30-5.90) M/uL Hgb 12.8 (12.0-16.0) g/dL Hct 38.4 (36.0-46.0) % MCV 85.1 (80.0-98.0) fL MCH 28.4 (27.0-32.0) pg MCHC 33.3 (31.0-37.0) g/dL RDW Std Deviation 41.1 (28.0-62.0) fl RDW Coeff of Iram 13 (11.0-15.0) % Plt Count 283 (150-400) K/uL MPV 10.90 (7.40-12.00) fL Neut % (Auto) 83.3 H (48.0-80.0) % Lymph % (Auto) 10.6 L (16.0-40.0) % [place] % (Auto) 6.0 (0.0-15.0) % Eos % (Auto) 0.0 (0.0-7.0) % Baso % (Auto) 0.1 (0.0-1.5) % Neut # (Auto) 11.9 H (1.4-5.7) K/uL Lymph # (Auto) 1.5 (0.6-2.4) K/uL [place] # (Auto) 0.9 H (0.0-0.8) K/uL Eos # (Auto) 0.0 (0.0-0.7) K/uL Baso # (Auto) 0.0 (0.0-0.1) K/uL Nucleated RBC % 0.0 /100WBC Nucleated RBCs # 0 K/uL Sodium 136 (136-145) mmol/L Potassium 3.6 (3.5-5.1) mmol/L Chloride 104 (98-107) mmol/L Carbon Dioxide 22.9 (21.0-32.0) mmol/L BUN 6 L (7.0-18.0) mg/dL Creatinine 0.6 (0.6-1.0) mg/dL Est Cr Clr Drug Dosing TNP Estimated GFR (MDRD) > 60.0 ml/min Glucose 109 H (74-106) mg/dL Calcium 8.1 L (8.5-10.1) mg/dL Magnesium (1.8-2.4) mg/dL Total Bilirubin (0.2-1.0) mg/dL AST (15-37) IU/L ALT (14-63) IU/L Alkaline Phosphatase (46-116) U/L Troponin I (0.000-0.056) ng/mL Total Protein (6.4-8.2) g/dL Albumin (3.4-5.0) g/dL Globulin (2.6-4.0) g/dL Albumin/Globulin Ratio (0.9-1.6) TSH 3rd Generation (0.36-3.74) uIU/mL Prolactin ng/mL Urine Color Urine Appearance Urine pH (5.0-8.0) Ur Specific [place] (1.001-1.035) Urine Protein (NEGATIVE) mg/dL Urine Glucose (UA) (NEGATIVE) mg/dL Urine Ketones (NEGATIVE) mg/dL Urine Occult Blood (NEGATIVE) Urine Nitrite (NEGATIVE) Urine Bilirubin (NEGATIVE) Urine Urobilinogen (<2.0) EU/dL Ur Leukocyte Esterase (NEGATIVE) Urine RBC (0-2/HPF) Urine WBC (0-5/HPF) Ur Epithelial Cells (NONE-FEW) Urine Bacteria (NEGATIVE) Urine HCG, Qual (NEGATIVE) Salicylates (0-20) mg/dL Urine Opiates Screen (NEGATIVE) Ur Oxycodone Screen (NEGATIVE) Urine Methadone Screen (NEGATIVE) Acetaminophen ug/mL Ur Barbiturates Screen (NEGATIVE) Ur Phencyclidine Scrn (NEGATIVE) Ur Amphetamine Screen (NEGATIVE) U Methamphetamines Scrn (NEGATIVE) U Benzodiazepines Scrn (NEGATIVE) U Cocaine Metab Screen (NEGATIVE) U Marijuana (THC) Screen (NEGATIVE) Ethyl Alcohol mg/dL Monoscreen (NEG) HIV 1&2 Ag/Ab, 4th Gen (<1.0) INDEX Rodri Results Last 24 Hours: Microbiology 08/10/18 00:35 Group A Streptococcus Rapid Screen - Final Throat NEGATIVE STREP A SCREEN REFERENCE RANGE: NEGATIVE Med Orders - Current: Current Medications Acetaminophen (Tylenol) 650 mg PO Q4H PRN PRN Reason: Pain (Mild 1-3)/fever Last Admin: 08/10/18 12:25 Dose: 650 mg Sodium Chloride (Normal Saline) 1,000 mls @ 125 mls/hr IV ASDIRECTED ESTEFANY Last Admin: 08/10/18 08:08 Dose: 125 mls/hr Sodium Chloride (Normal Saline) 1,000 mls @ 125 mls/hr IV ASDIRECTED ESTEFANY Last Admin: 08/10/18 00:45 Dose: 125 mls/hr Ceftriaxone Sodium/Dextrose 1 (gm/ Premix) 50 mls @ 100 mls/hr IV Q24H [facility] Ondansetron HCl (Zofran Odt) 4 mg PO Q4H PRN PRN Reason: nausea, able to take PO Discontinued Medications Acetaminophen (Tylenol Extra Strength) 500 mg PO Q6H PRN PRN Reason: Pain Sodium Chloride (Normal Saline) 1,000 mls @ 999 mls/hr IV STAT ONE Stop: 08/09/18 21:06 Last Admin: 08/09/18 20:19 Dose: 999 mls/hr Magnesium Sulfate 2 gm/ Premix 50 mls @ 25 mls/hr IV ONETIME ONE Stop: 08/10/18 09:44 Last Admin: 08/10/18 08:08 Dose: 25 mls/hr Sumatriptan Succinate (Imitrex) 50 mg PO ONETIME ONE Stop: 08/10/18 09:42 Last Admin: 08/10/18 10:07 Dose: 50 mg - Exam General: Alert, Oriented, Cooperative, No Acute Distress HEENT: Pupils Equal, Pupils Reactive, Other (drym mucous membranes). No: Scleral Icterus Lungs: Clear to Auscultation, Normal Respiratory Effort. No: Crackles, Wheezing Cardiovascular: Regular Rate, Regular Rhythm GI/Abdominal Exam: Normal Bowel Sounds, Soft, Non-Tender Extremities: Normal Inspection, No Pedal Edema Skin: Warm, Dry Neurological: No New Focal Deficit, Cranial Nerves Intact - Problem List Review Problem List Initiated/Reviewed/Updated: Yes - My Orders Last 24 Hours: My Active Orders 08/10/18 15:15 cefTRIAXone [Rocephin in Dextrose,Iso-Osm 1 GM/50 ML] 1 gm Premix Bag 1 bag IV Q24H - Plan Plan:: A: 1. Acute metabolic encephalopathy, likely 2/2 to viral infection 2. UTI 3. Migraine 4. Hypomagnesemia P: 1. Acute metabolic encephalopathy. Will continue with IV NS fluids and monitor. Seems to be at baseline. I suspect that it was possibly her migraine since she states the headache is similar to her migraine, rather than seizure activity. However, will need outpatient EEG and Zio patch for further evaluation. 2. UTI. Started ceftriaxone. 3. Migraine. Tylenol and Sumatriptan. 4. Hypomagnesemia, replaced. dispo: dc tomorrow.
[2018-08-10] MEDS ORDERED: SUMAtriptan 50 MG Tab PO PRN (15:34)
[2018-08-10] MEDS ORDERED: cefTRIAXone 1 GM in Premix Bag 1 BAG IV SCH (15:45)
[2018-08-11] MEDS: Sodium Chloride 0.9% 1,000 ML IV SCH ×2 (00:15→08:29)
[2018-08-11 06:35] LABS: CHLORIDE,CL 106 mmol/L (98-107); SODIUM,NA 138 mmol/L (136-145)
--- NOTE | 2018-08-11 10:24 | PCM.DCSUM1 ---
<Jeremy Lopez - Last Filed: 08/11/18 10:32> Discharge Summary - Hospital Course Free Text/Narrative:: 27 y/o female presented to the ER after suspected seizure at home. She was admitted for observation. In addition, she was found to have a UTI. She was started on ceftriaxone. During the hospitalization the patient did not have any seizures. She was given sumatriptan for migraines and that resolved her symptoms. She was tolerating PO intake and able to ambulate. She was discharged home on Macrobid 100 mg PO BID for 5 days and advised to follow-up with her PCP. - Discharge Data Discharge Date: 08/11/18 Discharge Disposition: Home, Self-Care 01 Condition: Good - Patient Instructions Diet: Regular Diet as Tolerated Activity: As Tolerated Notify Provider of: Fever, Increased Pain, Swelling and Redness, Nausea and/or Vomiting - Discharge Plan *PRESCRIPTION DRUG MONITORING PROGRAM REVIEWED*: Not Applicable *COPY OF PRESCRIPTION DRUG MONITORING REPORT IN PATIENT MARCI: Not Applicable Prescriptions/Med Rec: Nitrofurantoin Monohyd/M-Cryst [Macrobid 100 mg Capsule] 100 mg PO BID 5 Days # 10 capsule SUMAtriptan [Imitrex] 50 mg PO Q2H PRN #15 tablet PRN Reason: Headache Home Medications: Home Meds Escitalopram [Lexapro] 20 mg PO DAILY 08/09/18 [History] Nitrofurantoin Monohyd/M-Cryst [Macrobid 100 mg Capsule] 100 mg PO BID 5 Days # 10 capsule 08/11/18 [Rx] SUMAtriptan [Imitrex] 50 mg PO Q2H PRN #15 tablet 08/11/18 [Rx] Patient Handouts: Migraine Headache, [id number], Nitrofurantoin tablets or capsules, Sumatriptan tablets Referrals: [facility] [Outside] Adebayo Siu MD [Physician] - 08/20/18 12:30 pm Devaughn Haywood MD [Physician] - - Discharge Summary/Plan Comment DC Time >30 min.: No - Patient Data Vitals - Most Recent: Last Vital Signs Temp 36.6 C 08/11/18 08:00 Pulse 71 08/11/18 08:00 Resp 17 08/11/18 08:00 BP 119/74 08/11/18 08:00 Pulse Ox 95 08/11/18 08:00 Weight - Most Recent: 83.915 kg I&O - Last 24 hours: Intake & Output 08/10/18 08/11/18 08/11/18 22:59 06:59 14:59 Intake Total 2488 2623 Output Total 3200 0380 Balance -712 -519 Lab Results - Last 24 hrs: Laboratory Results - last 24 hr 08/11/18 08/11/18 Range/Units 05:35 05:35 WBC 10.89 (4.0-11.0) K/uL RBC 4.46 (4.30-5.90) M/uL Hgb 12.4 (12.0-16.0) g/dL Hct 38.2 (36.0-46.0) % MCV 85.7 (80.0-98.0) fL MCH 27.8 (27.0-32.0) pg MCHC 32.5 (31.0-37.0) g/dL RDW Std Deviation 41.9 (28.0-62.0) fl RDW Coeff of Iram 13 (11.0-15.0) % Plt Count 272 (150-400) K/uL MPV 10.60 (7.40-12.00) fL Nucleated RBC % 0.0 /100WBC Nucleated RBCs # 0 K/uL Sodium 138 (136-145) mmol/L Potassium 3.9 (3.5-5.1) mmol/L Chloride 106 (98-107) mmol/L Carbon Dioxide 22.5 (21.0-32.0) mmol/L BUN 5 L (7.0-18.0) mg/dL Creatinine 0.6 (0.6-1.0) mg/dL Est Cr Clr Drug Dosing TNP Estimated GFR (MDRD) > 60.0 ml/min Glucose 95 (74-106) mg/dL Calcium 8.1 L (8.5-10.1) mg/dL Magnesium 2.0 (1.8-2.4) mg/dL CLAUDIA Results - Last 24 hrs: Microbiology 08/10/18 00:35 Quick Strep Confirmation Culture - Final Throat NO GROUP A STREP ISOLATED REFERENCE RANGE: NEGATIVE Group A Streptococcus Rapid Screen - Final NEGATIVE STREP A SCREEN REFERENCE RANGE: NEGATIVE Med Orders - Current: Current Medications Acetaminophen (Tylenol) 650 mg PO Q4H PRN PRN Reason: Pain (Mild 1-3)/fever Last Admin: 08/10/18 12:25 Dose: 650 mg Sodium Chloride (Normal Saline) 1,000 mls @ 125 mls/hr IV ASDIRECTED [facility] Last Admin: 08/10/18 16:39 Dose: 125 mls/hr Sodium Chloride (Normal Saline) 1,000 mls @ 125 mls/hr IV ASDIRECTED [facility] Last Admin: 08/11/18 08:29 Dose: 125 mls/hr Ceftriaxone Sodium/Dextrose 1 (gm/ Premix) 50 mls @ 100 mls/hr IV Q24H [facility] Last Admin: 08/10/18 16:39 Dose: 100 mls/hr Ondansetron HCl (Zofran Odt) 4 mg PO Q4H PRN PRN Reason: nausea, able to take PO Sumatriptan Succinate (Imitrex) 50 mg PO Q2H PRN PRN Reason: Headache Last Admin: 08/11/18 09:05 Dose: 50 mg Discontinued Medications Acetaminophen (Tylenol Extra Strength) 500 mg PO Q6H PRN PRN Reason: Pain Sodium Chloride (Normal Saline) 1,000 mls @ 999 mls/hr IV STAT ONE Stop: 08/09/18 21:06 Last Admin: 08/09/18 20:19 Dose: 999 mls/hr Magnesium Sulfate 2 gm/ Premix 50 mls @ 25 mls/hr IV ONETIME ONE Stop: 08/10/18 09:44 Last Admin: 08/10/18 08:08 Dose: 25 mls/hr Sumatriptan Succinate (Imitrex) 50 mg PO ONETIME ONE Stop: 08/10/18 09:42 Last Admin: 08/10/18 10:07 Dose: 50 mg <Kaushik Norman - Last Filed: 08/12/18 19:27> - Patient Data Vitals - Most Recent: Last Vital Signs Temp 35.8 C 08/11/18 12:00 Pulse 71 08/11/18 12:00 Resp 22 H 08/11/18 12:00 BP 121/76 08/11/18 12:00 Pulse Ox 96 08/11/18 12:00 Med Orders - Current: Current Medications Discontinued Medications Acetaminophen (Tylenol) 650 mg PO Q4H PRN PRN Reason: Pain (Mild 1-3)/fever Last Admin: 08/10/18 12:25 Dose: 650 mg Acetaminophen (Tylenol Extra Strength) 500 mg PO Q6H PRN PRN Reason: Pain Sodium Chloride (Normal Saline) 1,000 mls @ 999 mls/hr IV STAT ONE Stop: 08/09/18 21:06 Last Admin: 08/09/18 20:19 Dose: 999 mls/hr Sodium Chloride (Normal Saline) 1,000 mls @ 125 mls/hr IV ASDIRECTED [facility] Last Admin: 08/10/18 16:39 Dose: 125 mls/hr Sodium Chloride (Normal Saline) 1,000 mls @ 125 mls/hr IV ASDIRECTED [facility] Last Admin: 08/11/18 08:29 Dose: 125 mls/hr Magnesium Sulfate 2 gm/ Premix 50 mls @ 25 mls/hr IV ONETIME ONE Stop: 08/10/18 09:44 Last Admin: 08/10/18 08:08 Dose: 25 mls/hr Ceftriaxone Sodium/Dextrose 1 (gm/ Premix) 50 mls @ 100 mls/hr IV Q24H [facility] Last Admin: 08/10/18 16:39 Dose: 100 mls/hr Ondansetron HCl (Zofran Odt) 4 mg PO Q4H PRN PRN Reason: nausea, able to take PO Sumatriptan Succinate (Imitrex) 50 mg PO ONETIME ONE Stop: 08/10/18 09:42 Last Admin: 08/10/18 10:07 Dose: 50 mg Sumatriptan Succinate (Imitrex) 50 mg PO Q2H PRN PRN Reason: Headache Last Admin: 08/11/18 09:05 Dose: 50 mg - Free Text/Narrative Note: I have examined the patient. I have discussed findings and treatment plan with the resident. I agree with the assessment and plan outlined in the following resident's note.
[2018-08-11 12:36] VITALS: BP 121/76
== END 2018-08-11 12:00 | disposition home or self-care (01) ==
LOC: MW.ED 20:01 → MW.MS 22:20
PROVIDERS: ADMIT Internal Medicine; ATTEND Internal Medicine
DX: G93.41 Metabolic encephalopathy (principal); N39.0 Urinary tract infection, site not specified; E83.42 Hypomagnesemia; G43.909 Migraine, unspecified, not intractable, without status migrainosus; Z91.040 Latex allergy status
CPT/HCPCS: 36415; 70450; 71045; 80048; 80053; 80305; 81001; 81025; 83735; 84146; 84443; 84484; 85025; 85027; 86308; 87081; 87086; 87389; 87880; 93005; 96360; 96361; 99285; A4217; A9270; G0480; J0696; J3475; J7040; 96365; 96366; 96367; 99284; G0378

== ENCOUNTER 2019-02-18 22:19 | Emergency (ER) | payer SELFPAY ==
[2019-02-18 22:41] VITALS: BP 125/76; PULSE 87
[2019-02-18] MEDS ORDERED: Albuterol/Ipratropium 3.0-0.5 MG/3 ML Neb Soln NEB ONE (22:53)
--- NOTE | 2019-02-18 23:01 | EDM.PDOC ---
ED HPI GENERAL MEDICAL PROBLEM - General Chief Complaint: Respiratory Problem Stated Complaint: COUGHING Time Seen by Provider: 02/18/19 22:49 - History of Present Illness INITIAL COMMENTS - FREE TEXT/NARRATIVE: HISTORY AND PHYSICAL: History of present illness: Patient is a 28-year-old female with no significant pulmonary history and who does not smoke cigarettes, and who also did not get her influenza shot this year , and who presents with a 24-hour history of dry hacking cough slightly sore throat nasal congestion and drainage. Patient denies and has no abdominal complaints such as pain vomiting or diarrhea. The patient does work in our local retirement and is unsure if she was exposed to anybody with similar symptoms. She has been pushing hydration and using [id number]-[id number] meds and she has also had a fever. Currently in the ED she is afebrile. Review of systems: As per history of present illness and below otherwise all systems reviewed and negative. Past medical history: As per history of present illness and as reviewed below otherwise noncontributory. Surgical history: As per history of present illness and as reviewed below otherwise noncontributory. Social history: No reported history of drug or alcohol abuse. Family history: As per history of present illness and as reviewed below otherwise noncontributory. Physical exam: General: Well-developed well-nourished female who is nontoxic and speaking with nasal quality to voice but she is not breathless. A dry hacking cough is appreciated in the ED HEENT: Atraumatic, normocephalic, pupils reactive, negative for conjunctival pallor or scleral icterus, mucous membranes moist, throat clear of exudates but there is some oropharyngeal erythema, no cervical adenopathy or nuchal rigidity , neck supple, nontender, trachea midline. Lungs: Clear to auscultation with diminished breath sounds throughout all lung joel but no work of breathing wheezing or stridor, breath sounds equal bilaterally, chest nontender. Heart: S1S2, regular, and rhythm no overt murmurs Abdomen: Soft, nondistended, nontender. Pelvis : deferred Genitourinary: Deferred. Rectal: Deferred. Extremities: Atraumatic, negative for cords or calf pain. Neurovascular unremarkable. Neuro: Awake, alert, oriented. Cranial nerves II through XII unremarkable. Cerebellum unremarkable. Motor and sensory unremarkable throughout. Exam nonfocal. Diagnostics: Influenza rapid strep chest x-ray Therapeutics: DuoNeb spacer and spacer teaching Impression: Influenza B Definitive disposition and diagnosis as appropriate pending reevaluation and review of above. Treatments [employer]ICER: Reports: Acetaminophen chest Pain Score (Numeric/FACES): 7 - Related Data Allergies Allergy/AdvReac Type Severity Reaction Status Date / Time latex Allergy Hives Verified 08/09/18 20:05 Home Meds: Home Meds Escitalopram [Lexapro] 20 mg PO DAILY 08/09/18 [History] Topiramate [Trokendi Xr] 25 mg PO BID 02/18/19 [History] ZOLMitriptan [Zolmitriptan] 5 mg PO ASDIRECTED PRN 02/18/19 [History] Past Medical History - Past Health History Medical/Surgical History: Denies Medical/Surgical History HEENT History: Reports: None Cardiovascular History: Reports: None Respiratory History: Reports: None Gastrointestinal History: Reports: None Genitourinary History: Reports: None CARDIOVASCULAR DISEASE SPECIALIST History: Reports: Musculoskeletal History: Reports: None Neurological History: Reports: Migraines Psychiatric History: Reports: Anxiety, Depression Endocrine/Metabolic History: Reports: None Hematologic History: Reports: None Immunologic History: Reports: None Oncologic (Cancer) History: Reports: None Dermatologic History: Reports: None - Infectious Disease History Infectious Disease History: Reports: None - Past Surgical History Head Surgeries/Procedures: Reports: None Female Surgical History: Reports: Section Social & Family History - Family History Family Medical History: Noncontributory - Tobacco Use Smoking Status *Q: Never Smoker - Caffeine Use Caffeine Use: Reports: None - Recreational Drug Use Recreational Drug Use: No ED ROS GENERAL - Review of Systems Review Of Systems: Comprehensive ROS is negative, except as noted in HPI. ED EXAM, GENERAL - Physical Exam Exam: See Below (see Dictation) Course - Vital Signs Last Recorded V/S: Last Vital Signs Temp 37.3 C 02/18/19 22:30 Pulse 87 02/18/19 22:30 Resp 18 02/18/19 22:30 BP 125/76 02/18/19 22:30 Pulse Ox 96 02/18/19 22:30 - Orders/Labs/Meds Orders: Active Orders 24 hr Category Date Time Status Communication Order [RC] STAT Care 02/18/19 22:53 Active RT Aerosol Therapy [RC] ASDIRECTED Care 02/18/19 22:53 Active CULTURE STREP A CONFIRMATION [RM] Stat Lab 02/18/19 22:55 Results STREP SCRN A RAPID W CULT CONF [RM] Stat Lab 02/18/19 22:55 Results Meds: Medications Discontinued Medications Generic Name Dose Route Start Last Admin Trade Name Freq PRN Reason Stop Dose Admin Albuterol/Ipratropium 3 ml 02/18/19 22:53 02/18/19 22:57 Duoneb 3.0-0.5 Mg/3 Ml NEB 02/18/19 22:54 3 ml ONETIME ONE Administration Departure - Departure Time of Disposition: 23:36 Disposition: Home, Self-Care 01 Condition: Good Clinical Impression: Influenza B - Discharge Information Referrals: PCP,None [Primary Care Provider] - Forms: ED Department Discharge Additional Instructions: The following information is given to patients seen in the emergency department who are being discharged to home. This information is to outline your options for follow-up care. We provide all patients seen in our emergency department with a follow-up referral. The need for follow-up, as well as the timing and circumstances, are variable depending upon the specifics of your emergency department visit. If you don't have a primary care physician on staff, we will provide you with a referral. We always advise you to contact your personal physician following an emergency department visit to inform them of the circumstance of the visit and for follow-up with them and/or the need for any referrals to a consulting specialist. The emergency department will also refer you to a specialist when appropriate. This referral assures that you have the opportunity for followup care with a specialist. All of these measure are taken in an effort to provide you with optimal care, which includes your followup. Under all circumstances we always encourage you to contact your private physician who remains a resource for coordinating your care. When calling for followup care, please make the office aware that this follow-up is from your recent emergency room visit. If for any reason you are refused follow-up, please contact the [facility] emergency department at and ask to speak to the emergency department charge nurse. [facility] Primary care- [place] [address] Push hydration and use coolmist humidifier at sleep times and Vicks to chest as you choose for congestion. You may use any [id number] antihistamines to help with your congestion such as Gifty Claritin or Benadryl. Please use the inhaler you have been given with your spacer 1 to 2 puffs every 6 hours for the next 24 hours and then 1 to 2 puffs every 6 hours as needed. Use cough medicine only when you are at home as it may make you drowsy or sleepy. The Tamiflu as prescribed to you as a will help shorten the duration of your symptoms and the severity but keep in mind it is not a cure for the symptoms. You may use any other medication such as Tylenol or ibuprofen for fever management and symptomatic care. Call and schedule a follow-up appointment in the clinic with 1 of our providers or with your provider and return to ER as needed and as discussed Sepsis Event Note - Evaluation Sepsis Screening Result: No Definite Risk - Focused Exam Vital Signs: Vital Signs Temp Pulse Resp BP Pulse Ox 02/18/19 22:30 37.3 C 87 18 125/76 96 Date Exam was Performed: 02/18/19 Time Exam was Performed: 23:36 - My Orders Last 24 Hours: My Active Orders 02/18/19 22:53 Communication Order [RC] STAT RT Aerosol Therapy [RC] ASDIRECTED 02/18/19 22:55 CULTURE STREP A CONFIRMATION [RM] Stat STREP SCRN A RAPID W CULT CONF [] Stat - Assessment/Plan Last 24 Hours: My Active Orders 02/18/19 22:53 Communication Order [RC] STAT RT Aerosol Therapy [RC] ASDIRECTED 02/18/19 22:55 CULTURE STREP A CONFIRMATION [RM] Stat STREP SCRN A RAPID W CULT CONF [] Stat
--- NOTE | 2019-02-18 23:32 | CR ---
INDICATION: fever x2 days, cough x1 day TECHNIQUE: Chest 2 views. COMPARISON: 08/09/18 FINDINGS: Cardiovascular and mediastinum: Heart size and vasculature are normal in caliber and appearance. Mediastinum is within normal limits. Lungs and pleural spaces: Lungs are clear. No sign of infiltrate or mass. No sign of pleural effusion. No pneumothorax. Bones and soft tissues: No significant findings. IMPRESSION: Unremarkable chest. Dictated by: Chin Carreon MD @ 02/18/2019 23:30:18 (Electronically Signed)
== END 2019-02-18 23:54 | disposition home or self-care (01) ==
LOC: MW.ED 22:19
DX: J10.1 Influenza due to other identified influenza virus with other respiratory manifestations (principal); F41.9 Anxiety disorder, unspecified; F32.9 Major depressive disorder, single episode, unspecified; Z91.040 Latex allergy status; Z79.899 Other long term (current) drug therapy
CPT/HCPCS: 71046; 71046-26; 87081; 87804; 87880-QW; 94640; 99283; 99284-25; J7620-GY

== ENCOUNTER 2020-04-18 10:11 | Emergency (ER) | payer MEDICAID ==
[2020-04-18] MEDS ORDERED: Sodium Chloride 0.9% 1,000 ML IV ONE (11:08)
[2020-04-18 11:52] LABS: BLOOD UREA NITROGEN,BUN 9 mg/dL (7.0-18.0); CARBON DIOXIDE,CO2 25.2 mmol/L (21.0-32.0); CHLORIDE,CL 104 mmol/L (98-107); GLUCOSE RANDOM 86 mg/dL (74-106); LIPASE 67 U/L (73-393); POTASSIUM,K 3.9 mmol/L (3.5-5.1); SODIUM,NA 139 mmol/L (136-145)
[2020-04-18] MEDS ORDERED: Iopamidol 755 MG/ML 500 ML Multipack Bottle IVPUSH ONE (12:41)
--- NOTE | 2020-04-18 12:57 | CT ---
Indication: Right lower quadrant pain Technique: Contrast-enhanced CT abdomen and pelvis coronal sagittal reformatted images obtained Comparison: O comparison Findings: The heart size is normal. Minimal basilar atelectasis. Probable focal fatty infiltration adjacent to the falciform ligament. Liver spleen pancreas gallbladder, adrenal glands are unremarkable. Normal appendix. Bowel is unremarkable. Symmetric enhancement of both kidneys. Possible tiny nonobstructing stone right lower pole. Tiny low-density lesions right kidney too small to characterize. No hydronephrosis. Urinary bladder is unremarkable. Rim enhancing lesion right ovary likely reflecting corpus luteum cyst. Tiny amount of fluid in the pelvis. No suspicious bony lesions. Impression: 1. No acute findings in the abdomen or pelvis. Normal appendix. 2. Probable corpus luteum cyst in the right ovary. Tiny amount of fluid in the pelvis. Please note that all CT scans at this facility use dose modulation, iterative reconstruction, and/or weight-based dosing when appropriate to reduce radiation dose to as low as reasonably achievable. Dictated by Deneen Cole MD @ Apr 18 2020 12:53PM Signed by Dr. Deneen Cole @ Apr 18 2020 12:57PM
[2020-04-18] MEDS ORDERED: Ketorolac 30 MG/ML SDV IVPUSH ONE (13:02)
[2020-04-18] MEDS ORDERED: Morphine 2 MG/ML SYRINGE IVPUSH ONE (14:18)
--- NOTE | 2020-04-18 14:19 | EDM.PDOC ---
ED HPI GENERAL MEDICAL PROBLEM - General Chief Complaint: Abdominal Pain Stated Complaint: ABDOMINAL PAIN Time Seen by Provider: 04/18/20 10:22 Source of Information: Reports: Patient History Limitations: Reports: No Limitations - History of Present Illness INITIAL COMMENTS - FREE TEXT/NARRATIVE: HISTORY AND PHYSICAL: History of present illness: Patient is a 29-year-old female presenting to the ED with right lower quadrant pain and diarrhea x4 days. Patient notes bright red bloody diarrhea 2 days ago that has since resolved. Last bowel movement was at 0600 on 04/18/20. Patient reports right lower quadrant pain that is intermittent, stabbing, and is elicited with change in position. Patient notes pain around her umbilicus rated 3 out of 10 that is constant and dull. Patient reports nausea yesterday without vomiting. Patient states she has a history of seizure disorder but denies any other health history. Last menstrual period was on 04/06/20. Patient states mercy t she is sexually active but is on a control pill. Patient denies fever, chills, chest pain, shortness of breath, or cough. Denies headache, neck stiff ness, change in vision, syncope, or near syncope. Denies vomiting, constipation, oliguria or dysuria. Has not noted any blood in urine. Patient has been eating and drinking appropriately. Review of systems: As per history of present illness and below otherwise all systems reviewed and negative. Past medical history: As per history of present illness and as reviewed below otherwise noncontributory. Surgical history: As per history of present illness and as reviewed below otherwise noncontributory. Social history: See social history for further information Family history: As per history of present illness and as reviewed below otherwise noncontributory. Physical exam: General: Patient is alert, oriented, and in no acute distress. Patient sitting comfortably on exam table. HEENT: Atraumatic, normocephalic, pupils equal and reactive bilaterally, negative for conjunctival pallor or scleral icterus, mucous membranes moist, TMs normal bilaterally, throat clear, neck supple, nontender, trachea midline. No drooling or trismus noted. No meningeal signs. No hot potato voice noted. Lungs: Clear to auscultation, breath sounds equal bilaterally, chest nontender. Heart: S1S2, regular rate and rhythm without overt murmur Abdomen: Soft, nondistended, moderate RLQ tenderness without guarding, negative rebound, negative norris. Negative for masses or hepatosplenomegaly. Negative for costovertebral tenderness. Pelvis: Stable nontender. Genitourinary: Paste Up Copy Camera Operator at bedside YVETTE May/Laisha Kraus. External genitalia is grossly unremarkable. Cervix nontender. Mild right-sided adnexal tenderness noted. No masses appreciated. Cervical os is closed. Moderate amount of white discharge noted in the vaginal vault. Rectal: No gisele blood noted on exam; no hemorrhoids, lesions, masses noted. Rectal tone intact. Guaiac negative. Skin: Intact, warm, dry. No lesions or rashes noted. Extremities: Atraumatic, negative for cords or calf pain. Neurovascular unremarkable. Neuro: Awake, alert, oriented. Cranial nerves II through XII unremarkable. Cerebellum unremarkable. Motor and sensory unremarkable throughout. Exam nonfocal. Notes: Upon reexamination of patient, she is more comfortable on exam and remains oren lly stable throughout stay in ED. All incidental findings of imaging today discussed with patient important to have this followed up with her primary care provider. Discussed importance for follow-up with her [employer] provider. Signs and symptoms that were prompt return to the ED thoroughly discussed with patient. No questions or concerns at this time and expresses understanding. Diagnostics: CBC, CMP, lipase, UA, urine hCG, abdominal pelvic CT with contrast, TVUS, Affirm, G&C, Repeat H&H Therapeutics: NS, Toradol, Morphine Prescription: Flagyl Impression: Right ovarian cyst Bacterial vaginosis Plan: 1. You can alternate ibuprofen and Tylenol as directed for pain and discomfort. 2. Follow-up with a primary care provider in the women's health provider as discussed. Return to the ED as needed and as discussed. 3. Take medication as prescribed. Definitive disposition and diagnosis as appropriate pending reevaluation and review of above. abdomen Pain Score (Numeric/FACES): 8 - Related Data Allergies Allergy/AdvReac Type Severity Reaction Status Date / Time latex Allergy Hives Verified 04/18/20 10:36 Home Meds: Home Meds Zonisamide 100 mg PO BID 04/18/20 [History] metroNIDAZOLE [Flagyl] 500 mg PO Q12H 7 Days #14 tab 04/18/20 [Rx] Past Medical History - Past Health History Medical/Surgical History: Denies Medical/Surgical History HEENT History: Reports: None Cardiovascular History: Reports: None Respiratory History: Reports: Other (See Below) Other Respiratory History: covid 23 nov 2019 Gastrointestinal History: Reports: None Genitourinary History: Reports: None PROPERTY CLAIM REP History: Reports: Musculoskeletal History: Reports: None Neurological History: Reports: Migraines, Seizure, Other (See Below) Other Neuro History: epilepsy Psychiatric History: Reports: Anxiety, Depression Endocrine/Metabolic History: Reports: None Hematologic History: Reports: None Immunologic History: Reports: None Oncologic (Cancer) History: Reports: None Dermatologic History: Reports: None - Infectious Disease History Infectious Disease History: Reports: None - Past Surgical History Head Surgeries/Procedures: Reports: None Cardiovascular Surgical History: Reports: None Respiratory Surgical History: Reports: None GI Surgical History: Reports: None Female Surgical History: Reports: Section Endocrine Surgical History: Reports: None Neurological Surgical History: Reports: None Social & Family History - Family History Family Medical History: No Pertinent Family History - Tobacco Use Tobacco Use Status *Q: Never Tobacco User Second Hand Smoke Exposure: No - Caffeine Use Caffeine Use: Reports: Coffee - Recreational Drug Use Recreational Drug Use: No ED ROS GENERAL - Review of Systems Review Of Systems: Comprehensive ROS is negative, except as noted in HPI. ED EXAM, GENERAL - Physical Exam Exam: See Below (see dictation) Course - Vital Signs Last Recorded V/S: Last Vital Signs Temp 97.6 F 04/18/20 15:30 Pulse 65 04/18/20 15:30 Resp 16 04/18/20 15:30 BP 108/67 04/18/20 15:30 Pulse Ox 98 04/18/20 15:30 - Orders/Labs/Meds Orders: Active Orders 24 hr Category Date Time Status CHLAMYDIA AND GONORRHEA BY TMA Stat Lab 04/18/20 12:50 Received Labs: Laboratory Tests 04/18/20 04/18/20 04/18/20 Range/Units 10:25 10:25 11:18 WBC 7.26 (4.0-11.0) K/uL RBC 4.82 (4.30-5.90) M/uL Hgb 14.5 (12.0-16.0) g/dL Hct 42.0 (36.0-46.0) % MCV 87.1 (80.0-98.0) fL MCH 30.1 (27.0-32.0) pg MCHC 34.5 (31.0-37.0) g/dL RDW Std Deviation 40.5 (28.0-62.0) fl RDW Coeff of Iram 13 (11.0-15.0) % Plt Count 292 (150-400) K/uL MPV 10.40 (7.40-12.00) fL Add Manual Diff YES Neutrophils % (Manual) 66 (48.0-80.0) % Band Neutrophils % 1 % Lymphocytes % (Manual) 27 (16.0-40.0) % Monocytes % (Manual) 6 (0.0-15.0) % Nucleated RBC % 0.0 /100WBC Absolute Seg Neuts 4.8 (1.4-5.7) Band Neutrophils # 0.1 Lymphocytes # (Manual) 2.0 (0.6-2.4) Monocytes # (Manual) 0.4 (0.0-0.8) Nucleated RBCs # 0 K/uL Sodium (136-145) mmol/L Potassium (3.5-5.1) mmol/L Chloride (98-107) mmol/L Carbon Dioxide (21.0-32.0) mmol/L BUN (7.0-18.0) mg/dL Creatinine (0.6-1.0) mg/dL Est Cr Clr Drug Dosing mL/min Estimated GFR (MDRD) ml/min Glucose (74-106) mg/dL Calcium (8.5-10.1) mg/dL Total Bilirubin (0.2-1.0) mg/dL AST (15-37) IU/L ALT (14-63) IU/L Alkaline Phosphatase (46-116) U/L Total Protein (6.4-8.2) g/dL Albumin (3.4-5.0) g/dL Globulin (2.6-4.0) g/dL Albumin/Globulin Ratio (0.9-1.6) Lipase (73-393) U/L Urine Color YELLOW Urine Appearance CLEAR Urine pH 8.0 (5.0-8.0) Ur Specific [place] 1.020 (1.001-1.035) Urine Protein NEGATIVE (NEGATIVE) mg/dL Urine Glucose (UA) NEGATIVE (NEGATIVE) mg/dL Urine Ketones NEGATIVE (NEGATIVE) mg/dL Urine Occult Blood NEGATIVE (NEGATIVE) Urine Nitrite NEGATIVE (NEGATIVE) Urine Bilirubin NEGATIVE (NEGATIVE) Urine Urobilinogen 0.2 (<2.0) EU/dL Ur Leukocyte Esterase NEGATIVE (NEGATIVE) Urine HCG, Qual NEGATIVE (NEGATIVE) Cara species DNA (NEGATIVE) Gardnerella DNA Probe (NEGATIVE) Trichomonas DNA Probe (NEGATIVE) 04/18/20 04/18/20 04/18/20 Range/Units 11:18 12:50 15:19 WBC (4.0-11.0) K/uL RBC (4.30-5.90) M/uL Hgb 13.0 (12.0-16.0) g/dL Hct 38.6 (36.0-46.0) % MCV (80.0-98.0) fL MCH (27.0-32.0) pg MCHC (31.0-37.0) g/dL RDW Std Deviation (28.0-62.0) fl RDW Coeff of Iram (11.0-15.0) % Plt Count (150-400) K/uL MPV (7.40-12.00) fL Add Manual Diff Neutrophils % (Manual) (48.0-80.0) % Band Neutrophils % % Lymphocytes % (Manual) (16.0-40.0) % Monocytes % (Manual) (0.0-15.0) % Nucleated RBC % /100WBC Absolute Seg Neuts (1.4-5.7) Band Neutrophils # Lymphocytes # (Manual) (0.6-2.4) Monocytes # (Manual) (0.0-0.8) Nucleated RBCs # K/uL Sodium 139 (136-145) mmol/L Potassium 3.9 (3.5-5.1) mmol/L Chloride 104 (98-107) mmol/L Carbon Dioxide 25.2 (21.0-32.0) mmol/L BUN 9 (7.0-18.0) mg/dL Creatinine 0.9 (0.6-1.0) mg/dL Est Cr Clr Drug Dosing 70.85 mL/min Estimated GFR (MDRD) > 60.0 ml/min Glucose 86 (74-106) mg/dL Calcium 8.6 (8.5-10.1) mg/dL Total Bilirubin 0.3 (0.2-1.0) mg/dL AST 16 (15-37) IU/L ALT 26 (14-63) IU/L Alkaline Phosphatase 87 (46-116) U/L Total Protein 7.1 (6.4-8.2) g/dL Albumin 3.6 (3.4-5.0) g/dL Globulin 3.5 (2.6-4.0) g/dL Albumin/Globulin Ratio 1.0 (0.9-1.6) Lipase 67 L (73-393) U/L Urine Color Urine Appearance Urine pH (5.0-8.0) Ur Specific [place] (1.001-1.035) Urine Protein (NEGATIVE) mg/dL Urine Glucose (UA) (NEGATIVE) mg/dL Urine Ketones (NEGATIVE) mg/dL Urine Occult Blood (NEGATIVE) Urine Nitrite (NEGATIVE) Urine Bilirubin (NEGATIVE) Urine Urobilinogen (<2.0) EU/dL Ur Leukocyte Esterase (NEGATIVE) Urine HCG, Qual (NEGATIVE) Cara species DNA NEGATIVE (NEGATIVE) Gardnerella DNA Probe POSITIVE H (NEGATIVE) Trichomonas DNA Probe NEGATIVE (NEGATIVE) Meds: Medications Discontinued Medications Generic Name Dose Route Start Last Admin Trade Name Freq PRN Reason Stop Dose Admin Sodium Chloride 1,000 mls @ 999 mls/hr 04/18/20 11:08 04/18/20 11:18 Normal Saline IV 04/18/20 12:08 999 mls/hr BOLUS ONE Administration Iopamidol 100 ml 04/18/20 12:41 04/18/20 12:42 Isovue Multipack-370 (76%) IVPUSH 04/18/20 12:42 100 ml ONETIME ONE Administration Ketorolac Tromethamine 30 mg 04/18/20 13:02 04/18/20 13:15 Toradol IVPUSH 04/18/20 13:03 30 mg ONETIME ONE Administration Morphine Sulfate 2 mg 04/18/20 14:18 04/18/20 14:47 Morphine IVPUSH 04/18/20 14:19 2 mg ONETIME ONE Administration Departure - Departure Time of Disposition: 15:35 Disposition: Home, Self-Care 01 Clinical Impression: Bacterial vaginosis Ovarian cyst Qualifiers: Laterality: right Qualified Code(s): N83.201 - Unspecified ovarian cyst, right side - Discharge Information Prescriptions: metroNIDAZOLE [Flagyl] 500 mg PO Q12H 7 Days #14 tab Instructions: Bacterial Vaginosis, [id number], Ovarian Cyst, [id number] Referrals: Adebayo Siu MD [Primary Care Provider] - Forms: ED Department Discharge Additional Instructions: The following information is given to patients seen in the emergency department who are being discharged to home. This information is to outline your options for follow-up care. We provide all patients seen in our emergency department wi th a follow-up referral. The need for follow-up, as well as the timing and circumstances, are variable depending upon the specifics of your emergency department visit. If you don't have a primary care physician on staff, we will provide you with a referral. We always advise you to contact your personal physician following an emergency department visit to inform them of the circumstance of the visit and for follow-up with them and/or the need for any referrals to a consulting specialist. The emergency department will also refer you to a specialist when appropriate. This referral assures that you have the opportunity for follow-up care with a specialist. All of these measure are taken in an effort to provide you with optimal care, which includes your follow-up. Under all circumstances we always encourage you to contact your private physician who remains a resource for coordinating your care. When calling for follow-up care, please make the office aware that this follow-up is from your recent emergency room visit. If for any reason you are refused follow-up, please contact the [facility] Emergency Department at and asked to speak to the emergency department charge nurse. [facility] [address] [place] [id number] [facility] [address] [place] [id number] [facility] [address] [place] [address] 1. You can alternate ibuprofen and Tylenol as directed for pain and discomfort. 2. Follow-up with a primary care provider in the women's health provider as discussed. Return to the ED as needed and as discussed. 3. Take medication as prescribed. Sepsis Event Note (ED) - Evaluation Sepsis Screening Result: No Definite Risk - Focused Exam Vital Signs: Vital Signs Temp Pulse Resp BP Pulse Ox 04/18/20 15:30 97.6 F 65 16 108/67 98 04/18/20 14:45 68 17 112/57 L 98 04/18/20 12:30 64 17 113/65 97 04/18/20 10:17 98.3 F 72 17 100/80 99 - My Orders Last 24 Hours: My Active Orders 04/18/20 12:50 CHLAMYDIA AND GONORRHEA BY TMA Stat - Assessment/Plan Last 24 Hours: My Active Orders 04/18/20 12:50 CHLAMYDIA AND GONORRHEA BY TMA Stat
--- NOTE | 2020-04-18 14:46 | US ---
INDICATION: Right pelvic pain for 5 days. TECHNIQUE: Ultrasound pelvis transvaginal. Real time sonographic images with Spectral and color Doppler imaging of the ovaries were obtained. COMPARISON: CT 04/18/2020 FINDINGS: Uterus: Retroflexed. Measures 6.9 x 4.0 x 3.4 cm. Normal echotexture of the myometrium. No masses. Endometrium: Normal in thickness measuring 4 mm. No sign of endometrial mass or fluid. Right ovary: Measures 4.7 x 2.2 x 3.5 cm. A somewhat irregular cystic structure in the right ovary measures 1.8 x 0.7 x 1.6 cm. Normal arterial and venous blood flow. Left ovary: Measures 2.6 x 1.9 x 2.0 cm. Multiple small follicles noted.. Normal arterial and venous blood flow. Cul-de-sac: A small amount of free fluid in the pelvis is likely physiologic. IMPRESSION: Irregular cystic structure in the right ovary likely reflects an involuting functional ovarian cyst or hemorrhagic cyst. Dictated by Durga Tamayo MD @ Apr 18 2020 2:39PM Signed by Dr. Durga Tamayo @ Apr 18 2020 2:44PM
[2020-04-18 16:22] VITALS: BP 108/67; PULSE 65
[2020-04-21 14:07] LABS: C.TRACHOMATIS BY TMA Negative (Negative); N.GONORRHOEAE BY TMA Negative (Negative)
== END 2020-04-18 15:43 | disposition home or self-care (01) ==
LOC: MW.ED 10:11
DX: N83.201 Unspecified ovarian cyst, right side (principal); N76.0 Acute vaginitis; B96.89 Other specified bacterial agents as the cause of diseases classified elsewhere; Z86.16 Personal history of COVID-19; Z91.040 Latex allergy status
CPT/HCPCS: 36415; 74177; 76830; 80053; 81003; 81025; 83690; 85014; 85018; 85025; 87480; 87491; 87510; 87591; 87660; 96374; 96375; 99284; J1885; J2270; J7030; Q9967; 99283

== ENCOUNTER 2021-04-25 15:16 | Emergency (ER) | payer MEDICAID, OTHER ==
[2021-04-25] MEDS ORDERED: Sodium Chloride 0.9% 1,000 ML IV ONE (15:19)
[2021-04-25] MEDS ORDERED: Morphine 4 MG/ML VIAL IVPUSH ONE ×2 (15:40→18:42)
[2021-04-25] MEDS ORDERED: Ondansetron 4 MG/2 ML SDV IVPUSH ONE (15:40)
[2021-04-25 16:26] LABS: BLOOD UREA NITROGEN,BUN 7 mg/dL (7.0-18.0); CARBON DIOXIDE,CO2 22.5 mmol/L (21.0-32.0); CHLORIDE,CL 106 mmol/L (98-107); GLUCOSE RANDOM 94 mg/dL (74-106); LIPASE 42 U/L (73-393); POTASSIUM,K 3.9 mmol/L (3.5-5.1); SODIUM,NA 140 mmol/L (136-145)
[2021-04-25 16:44] LABS: CORONAVIRUS COVID-19 NAA NEGATIVE (NEGATIVE); INFLUENZA A NAA NEGATIVE (NEGATIVE); INFLUENZA B NAA NEGATIVE (NEGATIVE)
[2021-04-25] MEDS ORDERED: Ketorolac 30 MG/ML SDV IVPUSH ONE (17:07)
[2021-04-25 20:22] VITALS: BP 95/65; PULSE 51
== END 2021-04-25 20:29 | disposition home or self-care (01) ==
LOC: MW.ED 15:16
DX: R10.31 Right lower quadrant pain (principal); Z91.040 Latex allergy status; Z86.16 Personal history of COVID-19; Z20.822 Contact with and (suspected) exposure to COVID-19
CPT/HCPCS: 0240U; 36415; 76856; 80053; 81003; 81025; 83690; 85025; 96374; 96375; 96376; 99284; J1885; J2270; J2405; J7030

== ENCOUNTER 2022-02-14 09:16 | Emergency (ER) | payer OTHER ==
[2022-02-14] MEDS ORDERED: Lactated Ringers 1,000 ML IV SCH (09:45)
[2022-02-14 10:17] LABS: CARBON DIOXIDE,CO2 24.1 mmol/L (21.0-32.0); POTASSIUM,K 3.8 mmol/L (3.5-5.1)
[2022-02-14] MEDS ORDERED: Oxymetazoline 0.05% Nasal Spray 30 ML Bottle NAS ONE (10:18)
[2022-02-14 10:51] LABS: CORONAVIRUS COVID-19 NAA NEGATIVE (NEGATIVE); INFLUENZA A NAA POSITIVE (NEGATIVE); INFLUENZA B NAA NEGATIVE (NEGATIVE); RESPIRATORY SYNCYTIAL VIR NAA NEGATIVE (NEGATIVE)
[2022-02-14] MEDS ORDERED: Acetaminophen 325 MG Tab PO ONE (11:10)
[2022-02-14] MEDS ORDERED: Metoclopramide 10 MG/2 ML SDV IVPUSH ONE (11:10)
[2022-02-14] MEDS ORDERED: Lactated Ringers 1,000 ML IV ONE (11:10)
[2022-02-14 11:19] VITALS: PULSE 61
[2022-02-14 12:09] VITALS: BP 117/68
== END 2022-02-14 12:45 | disposition home or self-care (01) ==
LOC: MW.ED 09:16
DX: J11.1 Influenza due to unidentified influenza virus with other respiratory manifestations (principal); Z88.8 Allergy status to other drugs, medicaments and biological substances; Z20.822 Contact with and (suspected) exposure to COVID-19
CPT/HCPCS: 0241U; 36415; 70450; 80053; 84703; 85025; 96361; 96374; 99285; A9270; J2765; J7120

== ENCOUNTER 2023-01-15 10:57 | Emergency (ER) | payer OTHER ==
[2023-01-15] MEDS ORDERED: Acetaminophen 500 MG Tab PO STA (11:35)
[2023-01-15] MEDS ORDERED: Sodium Chloride 0.9% 2.5 ML Syringe FLUSH PRN (11:35)
[2023-01-15] MEDS ORDERED: Sodium Chloride 0.9% 10 ML Syringe FLUSH PRN (11:35)
[2023-01-15] MEDS ORDERED: Sodium Chloride 0.9% 1,000 ML IV STA (11:35)
[2023-01-15 12:06] LABS: BASOPHILS ABSOLUTE AUTO 0.02 K/uL (0.00-0.20); BASOPHILS PERCENT AUTO 0.2 % (0.0-1.0); EOSINOPHILS ABSOLUTE AUTO 0.01 K/uL (0.00-0.45); EOSINOPHILS PERCENT AUTO 0.1 % (0.0-6.0); HEMATOCRIT 40.6 % (37.0-47.0); HEMOGLOBIN 14.4 g/dL (12.0-16.0); IMMATURE GRAN ABSOLUTE AUTO 0.03 K/uL (0.00-0.05); IMMATURE GRAN PERCENT AUTO 0.3 % (0.0-0.4); LYMPHOCYTES ABSOLUTE AUTO 1.86 K/uL (1.00-4.80); LYMPHOCYTES PERCENT AUTO 19.8 % (24.0-44.0); MEAN CORPUSCULAR HEMOGLOBIN 29.1 pg (28.0-32.0); MEAN CORPUSCULAR HGB CONC 35.5 g/dL (32.0-36.0); MEAN PLATELET VOLUME 10.4 fL (9.4-12.3); MONOCYTES ABSOLUTE AUTO 0.44 K/uL (0.00-0.80); MONOCYTES PERCENT AUTO 4.7 % (0.0-8.0); NEUTROPHILS ABSOLUTE AUTO 7.03 K/uL (1.80-7.70); NEUTROPHILS PERCENT AUTO 74.9 % (41.0-71.0); PLATELET COUNT,PLT 269 K/uL (150-400); RED BLOOD CELL COUNT 4.95 M/uL (4.10-5.30); WHITE BLOOD CELL COUNT,WBC 9.39 K/uL (3.9-11.3)
[2023-01-15 12:31] LABS: A/G RATIO 0.9 (0.9-1.6); ALBUMIN 3.4 g/dL (3.4-5.0); BILIRUBIN TOTAL 0.1 mg/dL (0.2-1.0); CALCIUM 8.9 mg/dL (8.5-10.1); CARBON DIOXIDE,CO2 23.3 mmol/L (21.0-32.0); CREATININE 0.7 mg/dL (0.6-1.0); EST CRCL DRUG DOSING (CG) 88.68 mL/min; POTASSIUM,K 3.7 mmol/L (3.5-5.1); PROTEIN TOTAL,TP 7.4 g/dL (6.4-8.2)
[2023-01-15 12:49] LABS: APPEARANCE,URINE CLEAR; BILIRUBIN,URINE NEGATIVE (NEGATIVE); COLOR,URINE YELLOW; GLUCOSE,URINE NEGATIVE (NEGATIVE); KETONES,URINE NEGATIVE (NEGATIVE); LEUKOCYTE ESTERASE,URINE NEGATIVE (NEGATIVE); NITRITE,URINE NEGATIVE (NEGATIVE); OCCULT BLOOD,URINE LARGE (NEGATIVE); PROTEIN,URINE NEGATIVE (NEGATIVE); UROBILINOGEN,URINE 0.2 EU/dL (<2.0)
[2023-01-15 12:57] LABS: WBC,URINE 0-1 (0-5/HPF)
[2023-01-15 12:58] LABS: BACTERIA,URINE FEW (NEGATIVE); EPITHELIAL CELLS,URINE MODERATE (NONE-FEW); RBC,URINE 0-3 (0-2/HPF)
[2023-01-15 15:21] VITALS: BP 115/71; PULSE 60
== END 2023-01-15 15:01 | disposition home or self-care (01) ==
LOC: MW.ED 10:57
DX: O26.851 Spotting complicating pregnancy, first trimester (principal); O36.0111 Maternal care for anti-D [Rh] antibodies, first trimester, fetus 1; O26.891 Other specified pregnancy related conditions, first trimester; R10.2 Pelvic and perineal pain; Z86.16 Personal history of COVID-19; Z91.040 Latex allergy status; Z3A.08 8 weeks gestation of pregnancy
CPT/HCPCS: 36415; 76801; 80053; 81001; 84702; 85025; 86900; 86901; 99284; A9270; J3490; J7030; 76817; 99283

== ENCOUNTER 2023-03-03 17:14 | Emergency (ER) | payer OTHER ==
[2023-03-03 18:14] LABS: BASOPHILS ABSOLUTE AUTO 0.03 K/uL (0.00-0.20); BASOPHILS PERCENT AUTO 0.2 % (0.0-1.0); EOSINOPHILS ABSOLUTE AUTO 0.01 K/uL (0.00-0.45); EOSINOPHILS PERCENT AUTO 0.1 % (0.0-6.0); HEMATOCRIT 35.6 % (37.0-47.0); HEMOGLOBIN 12.6 g/dL (12.0-16.0); IMMATURE GRAN ABSOLUTE AUTO 0.04 K/uL (0.00-0.05); IMMATURE GRAN PERCENT AUTO 0.3 % (0.0-0.4); LYMPHOCYTES ABSOLUTE AUTO 2.01 K/uL (1.00-4.80); LYMPHOCYTES PERCENT AUTO 13.9 % (24.0-44.0); MEAN CORPUSCULAR HEMOGLOBIN 28.6 pg (28.0-32.0); MEAN CORPUSCULAR HGB CONC 35.4 g/dL (32.0-36.0); MEAN CORPUSCULAR VOLUME 80.9 fL (83.0-99.0); MEAN PLATELET VOLUME 10.7 fL (9.4-12.3); MONOCYTES ABSOLUTE AUTO 0.65 K/uL (0.00-0.80); MONOCYTES PERCENT AUTO 4.5 % (0.0-8.0); NEUTROPHILS ABSOLUTE AUTO 11.77 K/uL (1.80-7.70); PLATELET COUNT,PLT 254 K/uL (150-400); WHITE BLOOD CELL COUNT,WBC 14.51 K/uL (3.9-11.3)
[2023-03-03 19:04] LABS: A/G RATIO 0.6 (0.9-1.6); ALANINE AMINOTRANSFERASE,ALT 20 IU/L (14-63); ALBUMIN 2.7 g/dL (3.4-5.0); ALKALINE PHOSPHATASE 95 U/L (46-116); ASPARTATE AMNIOTRANSFERASE,AST 11 IU/L (15-37); BILIRUBIN TOTAL 0.1 mg/dL (0.2-1.0); BLOOD UREA NITROGEN,BUN 7 mg/dL (7.0-18.0); CALCIUM 8.7 mg/dL (8.5-10.1); CARBON DIOXIDE,CO2 22.2 mmol/L (21.0-32.0); CHLORIDE,CL 105 mmol/L (98-107); CREATININE 0.6 mg/dL (0.6-1.0); GLUCOSE RANDOM 91 mg/dL (74-106); POTASSIUM,K 3.7 mmol/L (3.5-5.1); PROTEIN TOTAL,TP 6.9 g/dL (6.4-8.2); SODIUM,NA 138 mmol/L (136-145)
[2023-03-03 19:05] LABS: ESTIMATED GFR 124 mL/min (>60)
[2023-03-03 19:14] LABS: APPEARANCE,URINE CLOUDY; BILIRUBIN,URINE NEGATIVE (NEGATIVE); COLOR,URINE BROWN; GLUCOSE,URINE NEGATIVE (NEGATIVE); KETONES,URINE NEGATIVE (NEGATIVE); LEUKOCYTE ESTERASE,URINE MODERATE (NEGATIVE); NITRITE,URINE NEGATIVE (NEGATIVE); OCCULT BLOOD,URINE LARGE (NEGATIVE); PROTEIN,URINE NEGATIVE (NEGATIVE); UROBILINOGEN,URINE 0.2 EU/dL (<2.0)
[2023-03-03 19:25] LABS: BACTERIA,URINE 1+ (NEGATIVE); MUCUS,URINE LIGHT (NONE-MOD); RBC,URINE TOO NUMEROUS TO CT (0-2/HPF); SQUAMOUS EPITHELIAL CELLS,UR FEW
[2023-03-03 20:35] VITALS: BP 139/86
[2023-03-03] MEDS ORDERED: cefTRIAXone 1 GM in Sodium Chloride 0.9% 50 ML IV ONE (20:49)
[2023-03-03] MEDS ORDERED: Ondansetron 4 MG/2 ML SDV IVPUSH ONE (20:49)
[2023-03-03] MEDS ORDERED: Sodium Chloride 0.9% 1,000 ML IV ONE (20:49)
[2023-03-03] MEDS ORDERED: Acetaminophen 325 MG Tab PO ONE (22:30)
[2023-03-04 00:09] VITALS: PULSE 85
== END 2023-03-03 22:50 | disposition home or self-care (01) ==
LOC: MW.ED 17:14
DX: O20.8 Other hemorrhage in early pregnancy (principal); O23.42 Unspecified infection of urinary tract in pregnancy, second trimester; Z91.040 Latex allergy status; Z91.018 Allergy to other foods; Z98.890 Other specified postprocedural states; Z3A.15 15 weeks gestation of pregnancy
CPT/HCPCS: 36415; 76817; 80053; 81001; 84702; 85025; 87086; 96365; 96375; 99284; A9270; J0696; J2405; J3490; J7030

== ENCOUNTER 2023-03-16 14:35 | Observation (INO) | payer OTHER ==
[2023-03-16 15:58] LABS: BASOPHILS ABSOLUTE AUTO 0.03 K/uL (0.00-0.20); BASOPHILS PERCENT AUTO 0.2 % (0.0-1.0); HEMATOCRIT 35.3 % (37.0-47.0); HEMOGLOBIN 12.5 g/dL (12.0-16.0); IMMATURE GRAN ABSOLUTE AUTO 0.05 K/uL (0.00-0.05); IMMATURE GRAN PERCENT AUTO 0.4 % (0.0-0.4); LYMPHOCYTES ABSOLUTE AUTO 2.15 K/uL (1.00-4.80); LYMPHOCYTES PERCENT AUTO 15.1 % (24.0-44.0); MEAN CORPUSCULAR HGB CONC 35.4 g/dL (32.0-36.0); MEAN CORPUSCULAR VOLUME 81.9 fL (83.0-99.0); MEAN PLATELET VOLUME 10.3 fL (9.4-12.3); MONOCYTES ABSOLUTE AUTO 0.54 K/uL (0.00-0.80); MONOCYTES PERCENT AUTO 3.8 % (0.0-8.0); NEUTROPHILS ABSOLUTE AUTO 11.47 K/uL (1.80-7.70); NEUTROPHILS PERCENT AUTO 80.5 % (41.0-71.0); PLATELET COUNT,PLT 308 K/uL (150-400); RED BLOOD CELL COUNT 4.31 M/uL (4.10-5.30); WHITE BLOOD CELL COUNT,WBC 14.24 K/uL (3.9-11.3)
[2023-03-16 16:10] LABS: INR 0.96 (0.86-1.11)
[2023-03-16 16:51] LABS: A/G RATIO 0.6 (0.9-1.6); ALBUMIN 2.5 g/dL (3.4-5.0); BILIRUBIN TOTAL 0.2 mg/dL (0.2-1.0); CALCIUM 8.5 mg/dL (8.5-10.1); CARBON DIOXIDE,CO2 21.2 mmol/L (21.0-32.0); CREATININE 0.5 mg/dL (0.6-1.0); EST CRCL DRUG DOSING (CG) 124.15 mL/min; MAGNESIUM 1.8 mg/dL (1.8-2.4); POTASSIUM,K 4.3 mmol/L (3.5-5.1); PROTEIN TOTAL,TP 6.6 g/dL (6.4-8.2); TSH ULTRASENSITIVE 0.87 uIU/mL (0.36-3.74)
[2023-03-16] MEDS ORDERED: Water For Irrigation,Sterile 1,000 ML Container IRR PRN (21:29)
[2023-03-16] MEDS ORDERED: Lidocaine 1% 50 ML MDV INJECT PRN (21:29)
[2023-03-16] MEDS ORDERED: Sodium Chloride 0.9% 10 ML Syringe FLUSH PRN (21:29)
[2023-03-16] MEDS ORDERED: Sodium Chloride 0.9% 20 ML SDV IV PRN (21:29)
[2023-03-16] MEDS ORDERED: diphenhydrAMINE 50 MG Cap PO PRN (21:29)
[2023-03-16] MEDS ORDERED: Sodium Chloride 0.9% 2.5 ML Syringe FLUSH PRN (21:29)
[2023-03-16] MEDS: Acetaminophen 325 MG Tab PO PRN (22:18)
[2023-03-16 23:37] LABS: APPEARANCE,URINE SLT CLOUDY; BILIRUBIN,URINE NEGATIVE (NEGATIVE); COLOR,URINE YELLOW; GLUCOSE,URINE NEGATIVE (NEGATIVE); KETONES,URINE NEGATIVE (NEGATIVE); LEUKOCYTE ESTERASE,URINE NEGATIVE (NEGATIVE); NITRITE,URINE NEGATIVE (NEGATIVE); OCCULT BLOOD,URINE MODERATE (NEGATIVE); PH,URINE 5.5 (5.0-8.0); PROTEIN,URINE NEGATIVE (NEGATIVE); UROBILINOGEN,URINE 0.2 EU/dL (<2.0)
[2023-03-16 23:54] LABS: BACTERIA,URINE FEW (NEGATIVE); EPITHELIAL CELLS,URINE FEW (NONE-FEW)
[2023-03-16 23:55] LABS: MUCUS,URINE MODERATE (NONE-MOD)
[2023-03-17] MEDS: Acetaminophen 325 MG Tab PO PRN (03:02)
[2023-03-17] MEDS ORDERED: Acetaminophen/Butalbital/Caffeine 325-50-40 MG Tab PO PRN (07:56)
[2023-03-17 08:24] VITALS: BP 118/71; PULSE 75
== END 2023-03-17 09:25 | disposition home or self-care (01) ==
LOC: MW.ED 14:35 → MW.OB 18:12
PROVIDERS: ADMIT Obstetrics & Gynecology; ATTEND Obstetrics & Gynecology
DX: O71.7 Obstetric hematoma of pelvis (principal); Z3A.16 16 weeks gestation of pregnancy; N93.9 Abnormal uterine and vaginal bleeding, unspecified; Z91.040 Latex allergy status; Z91.018 Allergy to other foods; Z88.8 Allergy status to other drugs, medicaments and biological substances
CPT/HCPCS: 36415; 76815; 80053; 81001; 83735; 84443; 85025; 85610; 99285; A9270; 99282

== ENCOUNTER 2023-04-06 06:40 | Observation (INO) | payer OTHER ==
[2023-04-06] MEDS ORDERED: Sodium Chloride 0.9% 2.5 ML Syringe FLUSH PRN (06:52)
[2023-04-06] MEDS ORDERED: Sodium Chloride 0.9% 10 ML Syringe FLUSH PRN (06:52)
[2023-04-06] MEDS ORDERED: Acetaminophen 325 MG Tab PO PRN (07:49)
[2023-04-06 07:51] LABS: BASOPHILS ABSOLUTE AUTO 0.04 K/uL (0.00-0.20); BASOPHILS PERCENT AUTO 0.2 % (0.0-1.0); EOSINOPHILS ABSOLUTE AUTO 0.04 K/uL (0.00-0.45); EOSINOPHILS PERCENT AUTO 0.2 % (0.0-6.0); HEMATOCRIT 35.6 % (37.0-47.0); HEMOGLOBIN 12.5 g/dL (12.0-16.0); IMMATURE GRAN ABSOLUTE AUTO 0.08 K/uL (0.00-0.05); IMMATURE GRAN PERCENT AUTO 0.4 % (0.0-0.4); LYMPHOCYTES ABSOLUTE AUTO 1.29 K/uL (1.00-4.80); MEAN CORPUSCULAR HEMOGLOBIN 28.9 pg (28.0-32.0); MEAN CORPUSCULAR HGB CONC 35.1 g/dL (32.0-36.0); MEAN CORPUSCULAR VOLUME 82.4 fL (83.0-99.0); MEAN PLATELET VOLUME 10.3 fL (9.4-12.3); MONOCYTES ABSOLUTE AUTO 0.46 K/uL (0.00-0.80); MONOCYTES PERCENT AUTO 2.5 % (0.0-8.0); NEUTROPHILS ABSOLUTE AUTO 16.48 K/uL (1.80-7.70); NEUTROPHILS PERCENT AUTO 89.7 % (41.0-71.0); PLATELET COUNT,PLT 266 K/uL (150-400); RED BLOOD CELL COUNT 4.32 M/uL (4.10-5.30); WHITE BLOOD CELL COUNT,WBC 18.39 K/uL (3.9-11.3)
[2023-04-06 08:13] LABS: A/G RATIO 0.6 (0.9-1.6); ALBUMIN 2.7 g/dL (3.4-5.0); BILIRUBIN TOTAL 0.2 mg/dL (0.2-1.0); CALCIUM 8.8 mg/dL (8.5-10.1); CARBON DIOXIDE,CO2 19.8 mmol/L (21.0-32.0); CREATININE 0.6 mg/dL (0.6-1.0); EST CRCL DRUG DOSING (CG) 128.35 mL/min; POTASSIUM,K 3.8 mmol/L (3.5-5.1); PROTEIN TOTAL,TP 6.9 g/dL (6.4-8.2)
[2023-04-06 08:17] LABS: HEMOGLOBIN A1C 5.2 %
[2023-04-06 08:57] LABS: TSH ULTRASENSITIVE 1.46 uIU/mL (0.36-3.74)
[2023-04-06 14:18] VITALS: BP 127/72; PULSE 69
== END 2023-04-06 15:30 ==
LOC: MW.ED 06:40 → MW.OB 07:50
PROVIDERS: ADMIT Obstetrics & Gynecology; ATTEND Obstetrics & Gynecology
DX: O03.9 Complete or unspecified spontaneous abortion without complication (principal); O00-O9A Pregnancy, childbirth and the puerperium; R10.9 Unspecified abdominal pain; Z91.040 Latex allergy status; Z91.018 Allergy to other foods
CPT/HCPCS: 36415; 80053; 81240; 83036; 84443; 85025; 85613; 85730; 86747; 86900; 86901; 99284; A9270; 99283

== ENCOUNTER 2024-02-13 16:08 | Inpatient (IN) | payer OTHER ==
[2024-02-13 16:38] LABS: APPEARANCE,URINE CLEAR; BILIRUBIN,URINE NEGATIVE (NEGATIVE); COLOR,URINE YELLOW; GLUCOSE,URINE 250 mg/dL (NEGATIVE); KETONES,URINE NEGATIVE (NEGATIVE); LEUKOCYTE ESTERASE,URINE NEGATIVE (NEGATIVE); NITRITE,URINE NEGATIVE (NEGATIVE); OCCULT BLOOD,URINE NEGATIVE (NEGATIVE); PROTEIN,URINE NEGATIVE (NEGATIVE); UROBILINOGEN,URINE 0.2 EU/dL (<2.0)
[2024-02-13] MEDS ORDERED: Lidocaine 1% 50 ML MDV INJECT PRN (16:46)
[2024-02-13] MEDS ORDERED: Misoprostol 200 MCG Tab PO PRN (16:46)
[2024-02-13] MEDS ORDERED: Calcium Gluconate 10% 1 GM/10 ML SDV IV PRN (16:46)
[2024-02-13] MEDS ORDERED: Sodium Chloride 0.9% 2.5 ML Syringe FLUSH PRN (16:46)
[2024-02-13] MEDS ORDERED: Sodium Chloride 0.9% 10 ML Syringe FLUSH PRN (16:46)
[2024-02-13] MEDS ORDERED: Magnesium Sulfate/Water Premix 4 GM in Premix Bag 1 BAG IV ONE (16:46)
[2024-02-13] MEDS ORDERED: Carboprost Tromethamine 250 MCG/1 mL Vial IM PRN (16:46)
[2024-02-13] MEDS ORDERED: Sodium Chloride 0.9% 20 ML SDV IV PRN (16:46)
[2024-02-13] MEDS ORDERED: Tranexamic Acid in NACL,ISO-OS 1,000 MG in Premix Bag 1 BAG IV PRN ×2 (16:46→17:40)
[2024-02-13] MEDS ORDERED: Methylergonovine 0.2 MG/1 ML Amp IM PRN (16:46)
[2024-02-13] MEDS ORDERED: Water For Irrigation,Sterile 1,000 ML Container IRR PRN (16:46)
[2024-02-13] MEDS ORDERED: Butorphanol 2 MG/ML SDV IVPUSH PRN (16:46)
[2024-02-13] MEDS: NIFEdipine 10 MG Cap PO PRN (16:53)
[2024-02-13 16:58] LABS: CREATININE,URINE RAND 120.5 mg/dL; PROTEIN CREATININE RATIO,URINE 0.2; PROTEIN,URINE RANDOM 21.9 mg/dL (<11.9)
[2024-02-13] MEDS ORDERED: Magnesium Sulfate/Water Premix 20 GM/500 ML BAG IV SCH (17:00)
[2024-02-13] MEDS ORDERED: Oxytocin/0.9 % Sodium Chloride 30 UNIT/500 ML BAG IV SCH (17:00)
[2024-02-13 17:13] LABS: HEMATOCRIT 35.6 % (37.0-47.0); HEMOGLOBIN 12.4 g/dL (12.0-16.0); MEAN CORPUSCULAR HEMOGLOBIN 29.3 pg (28.0-32.0); MEAN CORPUSCULAR HGB CONC 34.8 g/dL (32.0-36.0); MEAN CORPUSCULAR VOLUME 84.2 fL (83.0-99.0); MEAN PLATELET VOLUME 11.8 fL (9.4-12.3); PLATELET COUNT,PLT 219 K/uL (150-400); RED BLOOD CELL COUNT 4.23 M/uL (4.10-5.30); WHITE BLOOD CELL COUNT,WBC 9.87 K/uL (3.9-11.3)
[2024-02-13 17:35] LABS: A/G RATIO 0.6 (0.9-1.6); ALBUMIN 2.2 g/dL (3.4-5.0); BILIRUBIN TOTAL 0.1 mg/dL (0.2-1.0); CALCIUM 8.5 mg/dL (8.5-10.1); CREATININE 0.7 mg/dL (0.6-1.0); EST CRCL DRUG DOSING (CG) 85.76 mL/min; POTASSIUM,K 3.7 mmol/L (3.5-5.1); PROTEIN TOTAL,TP 5.8 g/dL (6.4-8.2); URIC ACID 3.5 mg/dL (2.6-7.2)
[2024-02-13] MEDS ORDERED: Famotidine 20 MG Tab PO PRN (17:40)
[2024-02-13] MEDS ORDERED: Ondansetron 4 MG Tab.DIS PO PRN (17:40)
[2024-02-13] MEDS ORDERED: Aluminum Hydroxide/Magnesium Hydroxide/Simethicone Susp 30 ML Cup PO PRN (17:40)
[2024-02-13] MEDS ORDERED: diphenhydrAMINE 50 MG Cap PO PRN (17:40)
[2024-02-13] MEDS: Acetaminophen 500 MG Tab PO PRN (19:57)
[2024-02-13] MEDS: Labetalol 100 MG Tab PO SCH (21:10)
[2024-02-14] MEDS: Prenatal Multivitamin with Calcium/Folic Acid/Iron Tab PO SCH (09:01)
[2024-02-14] MEDS: Labetalol 100 MG Tab PO SCH (13:31)
[2024-02-14] MEDS ORDERED: Labetalol 100 MG Tab PO SCH (14:00)
[2024-02-14 14:03] LABS: GROUP B STREP BY PCR NEGATIVE (NEGATIVE)
[2024-02-14] MEDS ORDERED: Calcium Gluconate 10% 1 GM/10 ML SDV IV PRN (15:28)
[2024-02-14] MEDS: Labetalol 100 MG/20 ML MDV IVPUSH PRN (15:37)
[2024-02-14] MEDS: Lactated Ringers 1,000 ML IV SCH ×2 (15:38→21:00)
[2024-02-14] MEDS: Magnesium Sulfate/Water Premix 4 GM in Premix Bag 1 BAG IV ONE (15:40)
[2024-02-14] MEDS ORDERED: Misoprostol 200 MCG Tab RECTAL PRN (15:47)
[2024-02-14] MEDS ORDERED: Citric Acid/Sodium Citrate Solution 30 ML Cup PO ONE (15:47)
[2024-02-14] MEDS ORDERED: ceFAZolin 2 GM in Sodium Chloride 0.9% 50 ML IV ONE (15:47)
[2024-02-14] MEDS: Magnesium Sulfate/Water Premix 20 GM/500 ML BAG IV SCH (15:54)
[2024-02-14] MEDS ORDERED: Oxytocin/0.9 % Sodium Chloride 30 UNIT/500 ML BAG IV SCH (16:00)
[2024-02-14] MEDS ORDERED: Lactated Ringers 1,000 ML IV SCH (16:00)
[2024-02-14] MEDS ORDERED: ceFAZolin 1 GM Vial ONE (16:06)
[2024-02-14] MEDS ORDERED: fentaNYL 100 MCG/2 ML SDV ONE (16:06)
[2024-02-14] MEDS ORDERED: Bupivacaine 0.25% 30 ML SDV ONE (16:06)
[2024-02-14] MEDS ORDERED: Morphine PF 10 MG/10 ML SDV ONE (16:06)
[2024-02-14] MEDS ORDERED: EPINEPHrine 1 MG/1 ML Amp ONE (16:06)
[2024-02-14] MEDS ORDERED: Oxytocin 10 Units/1 ML SDV ONE (16:06)
[2024-02-14] MEDS ORDERED: Ondansetron 4 MG/2 ML SDV ONE (16:06)
[2024-02-14] MEDS ORDERED: Ropivacaine 0.5% 5 MG/ML 30 ML SDV ONE (16:06)
[2024-02-14] MEDS ORDERED: Ketorolac 30 MG/ML SDV ONE (16:06)
[2024-02-14] MEDS ORDERED: Phenylephrine HCl In 0.9% NaCl 1 MG/10 ML Syringe ONE ×3 (16:21→17:46)
[2024-02-14] MEDS ORDERED: Nalbuphine 10 MG/1 ML Vial IVPUSH PRN (16:33)
[2024-02-14] MEDS ORDERED: Metoclopramide 10 MG/2 ML SDV IVPUSH PRN (16:33)
[2024-02-14] MEDS ORDERED: Morphine 2 MG/ML SYRINGE IVPUSH PRN (16:33)
[2024-02-14] MEDS ORDERED: Ondansetron 4 MG/2 ML SDV IVPUSH PRN ×2 (16:33)
[2024-02-14] MEDS ORDERED: diphenhydrAMINE 50 MG/ML SDV IVPUSH PRN (16:33)
[2024-02-14] MEDS ORDERED: Acetaminophen/oxyCODONE 325-5 MG Tab PO PRN (16:33)
[2024-02-14] MEDS ORDERED: Phenylephrine HCl In 0.9% NaCl 1 MG/10 ML Syringe IVPUSH PRN (16:33)
[2024-02-14] MEDS ORDERED: Naloxone 0.4 MG/ML SDV IVPUSH PRN (16:33)
[2024-02-14] MEDS ORDERED: Albuterol 0.083% 2.5 MG/3 ML Neb Soln NEB PRN (16:33)
[2024-02-14] MEDS ORDERED: HYDROmorphone 1 MG/ML Syringe IVPUSH PRN (16:33)
[2024-02-14] MEDS ORDERED: fentaNYL 50 MCG/ML SDV IVPUSH PRN ×2 (16:33)
[2024-02-14] MEDS ORDERED: ePHEDrine 50 MG/ML SDV IM PRN (16:34)
[2024-02-14] MEDS ORDERED: Lidocaine 2% 5 ML SDV ONE (16:52)
[2024-02-14] MEDS ORDERED: Sodium Chloride 0.9% 2.5 ML Syringe FLUSH PRN (18:00)
[2024-02-14] MEDS ORDERED: Methylergonovine 0.2 MG/1 ML Amp IM PRN (18:00)
[2024-02-14] MEDS ORDERED: Measles, Mumps & Rubella Vaccine 0.5 ML SDV SUBCUT ONE (18:00)
[2024-02-14] MEDS ORDERED: Bisacodyl 10 MG Supp RECTAL PRN (18:00)
[2024-02-14] MEDS ORDERED: Oxytocin 10 Units/1 ML SDV IM PRN (18:00)
[2024-02-14] MEDS ORDERED: Sodium Chloride 0.9% 10 ML Syringe FLUSH PRN (18:00)
[2024-02-14] MEDS ORDERED: Lanolin 100% Cream 7 GM Tube TOP PRN (18:00)
[2024-02-14] MEDS ORDERED: diphenhydrAMINE 25 MG Cap PO PRN (18:00)
[2024-02-14] MEDS ORDERED: Sennosides 8.6 MG Tab PO PRN (18:00)
[2024-02-14] MEDS: Labetalol 100 MG/20 ML MDV ONE (18:09)
[2024-02-14] MEDS: Magnesium Sulfate/Water Premix 100 ML ONE (18:09)
[2024-02-14] MEDS: Magnesium Sulfate/Water Premix 20 GM/500 ML BAG ONE (18:09)
[2024-02-14] MEDS: Acetaminophen 1,000 MG in Premix Bag 1 BAG IV SCH (18:53)
[2024-02-14] MEDS: Docusate Sodium 100 MG Cap PO SCH (21:12)
[2024-02-15] MEDS: Ibuprofen 800 MG Tab PO PRN (00:07)
[2024-02-15 05:51] LABS: HEMATOCRIT 34.4 % (37.0-47.0)
[2024-02-15] MEDS: Simethicone 80 MG Tab.Chew PO PRN (12:03)
[2024-02-16] MEDS: oxyCODONE 5 MG Tab PO PRN (02:16)
[2024-02-16 15:54] VITALS: BP 131/80; PULSE 80
== END 2024-02-16 15:58 | disposition home or self-care (01) | DRG 788 ==
LOC: MW.OBCHECK 16:08 → MW.OB 17:40 → OBSVTOIN 18:00 → MW.OB 18:00
PROVIDERS: ADMIT Obstetrics & Gynecology; ATTEND Obstetrics & Gynecology
PROC: 10D00Z1 Extraction of Products of Conception, Low, Open Approach (ICD-10-PCS; principal; 2024-02-14 16:00)
DX: O24.420 Gestational diabetes mellitus in childbirth, diet controlled (principal); O99.214 Obesity complicating childbirth; O34.211 Maternal care for low transverse scar from previous cesarean delivery; O11.4 Pre-existing hypertension with pre-eclampsia, complicating childbirth; O99.892 Other specified diseases and conditions complicating childbirth; N73.6 Female pelvic peritoneal adhesions (postinfective); Z37.0 Single live birth
CPT/HCPCS: 36415; 59025; 76819; 76819-26; 80053; 81003; 82570; 84156; 84550; 85014; 85018; 85027; 86592; 86850; 86900; 86901; 87653; A9270-GY; J0131; J0171; J0665; J0690; J1100; J1885; J1920; J2274; J2371; J2405; J2590; J2795; J3010; J3475; J3490; J7120